=== PATIENT | male | born 1955 | race Caucasian/White ===

== ENCOUNTER 2016-06-21 18:25 | Inpatient (IN) | payer MEDICAID ==
[~2016-06-21] VITALS: Ht 180.3 cm; Wt 78.5 kg
[2016-06-21 18:33] VITALS: BP 148/82; PULSE 117; RESP 24; TEMP 99.4; O2SAT 86
[2016-06-21] MEDS ORDERED: methylPREDNISolone SOD SUCC/PF 62.5 MG/ML VIAL IVP ONE (19:00)
[2016-06-21] MEDS ORDERED: IPRATROPIUM BROM 0.5 MG/2.5 ML VIAL.NEB (ATROVENT) IH ONE ×2 (19:00→20:30)
[2016-06-21] MEDS ORDERED: ALBUTEROL SULFATE 0.083% 2.5 MG/3 ML VIAL.NEB IH ONE (19:00)
[2016-06-21 19:22] LABS: MEAN CORPUSCULAR HEMOGLOBIN 30 pg (27-31); MEAN CORPUSCULAR HGB CONC 33 % (32-36); MEAN CORPUSCULAR VOLUME 92 fL (79.0-98.0)
[2016-06-21 19:29] LABS: HEMOGLOBIN 14.2 g/dL (14.0-18.0); WHITE BLOOD COUNT (AUTO) 23.7 K/uL (4.8-10.8)
[2016-06-21 19:30] LABS: CALCIUM 9.3 mg/dL (8.4-11.0); CREATININE 1.12 mg/dL (0.55-1.30); HEMATOCRIT 43.3 % (36-54); PLATELET COUNT (AUTO) 388 K/uL (130-430); POTASSIUM 4.5 mmol/L (3.5-5.1); RED CELL DISTRIBUTION WIDTH 13.4 % (9.0-15.0)
[2016-06-21 19:32] LABS: PROTHROMBIN TIME 11.1 SECS (9.5-12.5)
[2016-06-21 19:35] LABS: TOTAL BILIRUBIN 0.5 mg/dL (0.0-1.0); TOTAL PROTEIN, SERUM 8.1 g/dL (6.4-8.3)
[2016-06-21 19:49] LABS: ATYPICAL LYMPHOCYTES % 0 % (0-0); BAND % (MANUAL) 2 % (0-6); BASOPHILS % (MANUAL) 0 % (0-2); EOSINOPHILS % (MANUAL) 0 % (0-7); LYMPHOCYTES % (MANUAL) 10 % (20-46); MONOCYTES % (MANUAL) 4 % (0-11)
[2016-06-21] MEDS ORDERED: LEVOFLOXACIN 500 MG/D5W 100 ML IV ONE (20:00)
[2016-06-21] MEDS ORDERED: ACETAMINOPHEN 325 MG TABLET PO ONE (20:15)
[2016-06-21 20:17] LABS: BLOOD GAS PH 7.418 (7.350-7.450)
[2016-06-21 20:18] LABS: ABG TOTAL HEMOGLOBIN 14.5 G/dL (12.0-18.0); BLOOD GAS BASE EXCESS 2.7 mmol/L (-3.0-3.0); BLOOD GAS COHb% 1.4 % (0.5-1.5); BLOOD GAS HHB 14.8 % (0.0-6.0); BLOOD O2Hb% 83.5 % (94.0-97.0)
[2016-06-21] MEDS ORDERED: LevALBUTEROL HCL 1.25 MG/0.5 ML *CONC.* VIAL.NEB (XOPENEX CONC.) INH ONE (20:30)
[2016-06-21] MEDS ORDERED: IPRA0.2S6 INH (20:37)
[2016-06-21] MEDS ORDERED: LISI-600 PO (20:37)
[2016-06-21] MEDS ORDERED: ALBU2.5V7 INH (20:37)
[2016-06-21] MEDS ORDERED: SIMV10TA6 PO (20:37)
[2016-06-21] MEDS ORDERED: CARV3.1246 PO (20:37)
[2016-06-21] MEDS ORDERED: ASPI-1063 PO (20:37)
[2016-06-21] MEDS ORDERED: MOME13HF INH (20:37)
[2016-06-21] MEDS ORDERED: IPRATROPIUM BROM 0.5 MG/2.5 ML VIAL.NEB (ATROVENT) INH PRN (21:00)
[2016-06-21] MEDS ORDERED: ALBUTEROL SULFATE 0.083% 2.5 MG/3 ML VIAL.NEB INH PRN (21:00)
[2016-06-21 21:15] VITALS: BP 139/66; PULSE 107
[2016-06-21 21:42] VITALS: BP 106/68; PULSE 103; RESP 21; TEMP 97.9; O2SAT 91
[2016-06-21] MEDS ORDERED: cefTRIAXone 1 GM IVPB PREMIX 50 ML IV ONE (21:46)
[2016-06-21] MEDS ORDERED: AZITHROMYCIN 500 MG/VIAL (ZITHROMAX) IV ONE (21:47)
[2016-06-21] MEDS: CARVEDILOL 3.125 MG TABLET (COREG) PO SCH (21:50)
[2016-06-21] MEDS: SIMVASTATIN 10 MG TABLET PO SCH (21:50)
[2016-06-21] MEDS: cefTRIAXone 1 GM IVPB PREMIX 50 ML IV SCH (21:51)
[2016-06-21] MEDS: AZITHROMYCIN 500 MG in NS 250 ML IV SCH (22:23)
[2016-06-21] MEDS: IPRATROPIUM BROM 0.5 MG/2.5 ML VIAL.NEB (ATROVENT) INH SCH (23:06)
[2016-06-21] MEDS: ALBUTEROL SULFATE 0.083% 2.5 MG/3 ML VIAL.NEB INH SCH (23:06)
[2016-06-22] VITALS (7 sets, daily range): BP systolic 94–123; BP diastolic 53–64; PULSE 72–102; RESP 17–19; TEMP 96.8–99.8; O2SAT 92–99
[2016-06-22] MEDS: ALBUTEROL SULFATE 0.083% 2.5 MG/3 ML VIAL.NEB INH SCH ×5 (03:00→20:17)
[2016-06-22] MEDS: IPRATROPIUM BROM 0.5 MG/2.5 ML VIAL.NEB (ATROVENT) INH SCH ×5 (03:00→20:17)
[2016-06-22] MEDS: methylPREDNISolone SOD SUCC/PF 62.5 MG/ML VIAL IVP SCH ×3 (05:35→22:15)
[2016-06-22] MEDS: CARVEDILOL 3.125 MG TABLET (COREG) PO SCH ×2 (09:00→20:39)
[2016-06-22] MEDS: LISINOPRIL 20 MG TABLET PO SCH (09:00)
[2016-06-22] MEDS: ASPIRIN 81 MG TABLET(ECOTRIN) PO SCH (10:51)
[2016-06-22] MEDS: SIMVASTATIN 10 MG TABLET PO SCH (20:39)
[2016-06-22] MEDS: cefTRIAXone 1 GM IVPB PREMIX 50 ML IV SCH (20:39)
[2016-06-22] MEDS: AZITHROMYCIN 500 MG in NS 250 ML IV SCH (22:16)
[2016-06-23 01:03] VITALS: BP 114/66; PULSE 99; RESP 18; TEMP 98.8; O2SAT 94
[2016-06-23] MEDS: ALBUTEROL SULFATE 0.083% 2.5 MG/3 ML VIAL.NEB INH SCH ×6 (02:34→23:06)
[2016-06-23] MEDS: IPRATROPIUM BROM 0.5 MG/2.5 ML VIAL.NEB (ATROVENT) INH SCH ×6 (02:34→23:06)
[2016-06-23 04:09] VITALS: BP 102/59; PULSE 84; RESP 18; TEMP 98.7; O2SAT 98
[2016-06-23] MEDS: methylPREDNISolone SOD SUCC/PF 62.5 MG/ML VIAL IVP SCH ×2 (06:21→14:19)
[2016-06-23 07:35] LABS: HEMATOCRIT 34.3 % (36-54); HEMOGLOBIN 11.8 g/dL (14.0-18.0); MEAN CORPUSCULAR HEMOGLOBIN 31 pg (27-31); MEAN CORPUSCULAR HGB CONC 34 % (32-36); MEAN CORPUSCULAR VOLUME 92 fL (79.0-98.0); PLATELET COUNT (AUTO) 351 K/uL (130-430); RED BLOOD CELL COUNT(AUTO) 3.75 MIL/uL (4.2-6.2); RED CELL DISTRIBUTION WIDTH 13.3 % (9.0-15.0)
[2016-06-23 07:50] LABS: WHITE BLOOD COUNT (AUTO) 35.1 K/uL (4.8-10.8)
[2016-06-23 07:52] LABS: CALCIUM 8.6 mg/dL (8.4-11.0); CREATININE 1.11 mg/dL (0.55-1.30); POTASSIUM 5.1 mmol/L (3.5-5.1)
[2016-06-23 08:41] LABS: BAND % (MANUAL) 5 % (0-6)
[2016-06-23 08:42] LABS: BASOPHILS % (MANUAL) 0 % (0-2); EOSINOPHILS % (MANUAL) 0 % (0-7); LYMPHOCYTES % (MANUAL) 3 % (20-46); MONOCYTES % (MANUAL) 3 % (0-11)
[2016-06-23] MEDS: ASPIRIN 81 MG TABLET(ECOTRIN) PO SCH (09:23)
[2016-06-23] MEDS: LISINOPRIL 20 MG TABLET PO SCH (09:24)
[2016-06-23] MEDS: CARVEDILOL 3.125 MG TABLET (COREG) PO SCH ×2 (09:24→21:52)
[2016-06-23 12:00] VITALS: BP 115/62; PULSE 77; RESP 16; TEMP 98.2; O2SAT 95
[2016-06-23 15:43] VITALS: Ht 180.3 cm; Wt 78.5 kg
[2016-06-23 16:00] VITALS: BP 125/75; PULSE 76; RESP 18; TEMP 98; O2SAT 100
[2016-06-23 20:00] VITALS: BP 106/67; PULSE 76; RESP 14; TEMP 99.1; O2SAT 95
[2016-06-23] MEDS ORDERED: DOCUSATE SODIUM 100 MG CAPSULE PO PRN (21:30)
[2016-06-23] MEDS: SIMVASTATIN 10 MG TABLET PO SCH (21:52)
[2016-06-23] MEDS: cefTRIAXone 1 GM IVPB PREMIX 50 ML IV SCH (21:54)
[2016-06-23] MEDS: AZITHROMYCIN 500 MG in NS 250 ML IV SCH (23:00)
[2016-06-23] MEDS: MAG-AL HYDROX/SIMETH 30 ML UDC PO PRN (23:04)
[2016-06-24] VITALS: BP 133/50; PULSE 60; RESP 16; TEMP 98; O2SAT 95
[2016-06-24] MEDS: ALBUTEROL SULFATE 0.083% 2.5 MG/3 ML VIAL.NEB INH SCH ×6 (03:17→23:21)
[2016-06-24] MEDS: IPRATROPIUM BROM 0.5 MG/2.5 ML VIAL.NEB (ATROVENT) INH SCH ×6 (03:18→23:21)
[2016-06-24 04:00] VITALS: BP 102/57; PULSE 85; RESP 18; TEMP 97.7; O2SAT 95
[2016-06-24 07:52] LABS: BASOPHILS # (AUTO) 0.1 K/uL (0.0-0.2); BASOPHILS % (AUTO) 0.4 % (0.0-2.0); HEMATOCRIT 38.1 % (36-54); HEMOGLOBIN 12.6 g/dL (14.0-18.0); LYMPHOCYTES # (AUTO) 0.8 K/uL (1.0-5.5); LYMPHOCYTES % (AUTO) 2.9 % (20.5-51.5); MEAN CORPUSCULAR HEMOGLOBIN 31 pg (27-31); MEAN CORPUSCULAR HGB CONC 33 % (32-36); MEAN CORPUSCULAR VOLUME 93 fL (79.0-98.0); MONOCYTES # (AUTO) 0.8 K/uL (0.0-1.0); MONOCYTES % (AUTO) 2.9 % (1.7-9.3); NEUTROPHILS # (AUTO) 27.1 K/uL (1.8-7.7); PLATELET COUNT (AUTO) 407 K/uL (130-430); RED CELL DISTRIBUTION WIDTH 13.4 % (9.0-15.0)
[2016-06-24 08:00] VITALS: BP 129/66; PULSE 89; RESP 14; TEMP 98.3; O2SAT 99
[2016-06-24] MEDS: methylPREDNISolone SOD SUCC/PF 62.5 MG/ML VIAL IVP SCH ×2 (08:29→22:02)
[2016-06-24] MEDS: ASPIRIN 81 MG TABLET(ECOTRIN) PO SCH (08:29)
[2016-06-24] MEDS: CARVEDILOL 3.125 MG TABLET (COREG) PO SCH ×2 (08:30→21:59)
[2016-06-24] MEDS: LISINOPRIL 20 MG TABLET PO SCH (08:31)
[2016-06-24 08:48] LABS: WHITE BLOOD COUNT (AUTO) 28.8 K/uL (4.8-10.8)
[2016-06-24 10:29] LABS: NEUTROPHILS % (AUTO) 93.8 % (40.0-70.0)
[2016-06-24 12:00] VITALS: BP_SYST 118; BP_SYST 122; BP_DIAS 74; PULSE 122; PULSE 70; RESP 16; RESP 18; TEMP 97; TEMP 97.8; O2SAT 93; O2SAT 97
[2016-06-24 16:00] VITALS: BP 129/74; PULSE 84; RESP 18; TEMP 98.4; O2SAT 99
[2016-06-24] MEDS: cefTRIAXone 1 GM IVPB PREMIX 50 ML IV SCH (21:00)
[2016-06-24] MEDS: SIMVASTATIN 10 MG TABLET PO SCH (21:59)
[2016-06-24] MEDS: AZITHROMYCIN 500 MG in NS 250 ML IV SCH (22:09)
[2016-06-25] VITALS (7 sets, daily range): BP systolic 126–157; BP diastolic 71–85; PULSE 64–107; RESP 16–22; TEMP 98.4–99; O2SAT 93–98
[2016-06-25] MEDS: IPRATROPIUM BROM 0.5 MG/2.5 ML VIAL.NEB (ATROVENT) INH SCH ×5 (03:58→20:15)
[2016-06-25] MEDS: ALBUTEROL SULFATE 0.083% 2.5 MG/3 ML VIAL.NEB INH SCH ×5 (03:58→20:15)
[2016-06-25 09:09] LABS: BASOPHILS # (AUTO) 0.2 K/uL (0.0-0.2); BASOPHILS % (AUTO) 1.2 % (0.0-2.0); HEMATOCRIT 34.8 % (36-54); HEMOGLOBIN 11.8 g/dL (14.0-18.0); LYMPHOCYTES # (AUTO) 0.9 K/uL (1.0-5.5); LYMPHOCYTES % (AUTO) 6.3 % (20.5-51.5); MEAN CORPUSCULAR HEMOGLOBIN 31 pg (27-31); MEAN CORPUSCULAR HGB CONC 34 % (32-36); MEAN CORPUSCULAR VOLUME 93 fL (79.0-98.0); MONOCYTES # (AUTO) 0.5 K/uL (0.0-1.0); MONOCYTES % (AUTO) 3.3 % (1.7-9.3); PLATELET COUNT (AUTO) 366 K/uL (130-430); RED BLOOD CELL COUNT(AUTO) 3.75 MIL/uL (4.2-6.2); RED CELL DISTRIBUTION WIDTH 13.2 % (9.0-15.0); WHITE BLOOD COUNT (AUTO) 14.6 K/uL (4.8-10.8)
[2016-06-25] MEDS: methylPREDNISolone SOD SUCC/PF 62.5 MG/ML VIAL IVP SCH ×2 (10:05→21:04)
[2016-06-25] MEDS: LISINOPRIL 20 MG TABLET PO SCH (10:06)
[2016-06-25] MEDS: ASPIRIN 81 MG TABLET(ECOTRIN) PO SCH (10:06)
[2016-06-25] MEDS: CARVEDILOL 3.125 MG TABLET (COREG) PO SCH ×2 (10:07→21:33)
[2016-06-25 12:13] LABS: NEUTROPHILS % (AUTO) 89.2 % (40.0-70.0)
[2016-06-25] MEDS: cefTRIAXone 1 GM IVPB PREMIX 50 ML IV SCH (21:03)
[2016-06-25] MEDS: SIMVASTATIN 10 MG TABLET PO SCH (21:32)
[2016-06-25] MEDS: AZITHROMYCIN 500 MG in NS 250 ML IV SCH (22:12)
[2016-06-26] VITALS: BP 159/89; PULSE 80; RESP 20; TEMP 98.6; O2SAT 94
[2016-06-26] MEDS: MAG-AL HYDROX/SIMETH 30 ML UDC PO PRN ×2 (00:28→21:55)
[2016-06-26] MEDS: ALBUTEROL SULFATE 0.083% 2.5 MG/3 ML VIAL.NEB INH SCH ×6 (02:34→23:15)
[2016-06-26] MEDS: IPRATROPIUM BROM 0.5 MG/2.5 ML VIAL.NEB (ATROVENT) INH SCH ×6 (02:34→23:16)
[2016-06-26 04:00] VITALS: BP 116/56; PULSE 89; RESP 17; TEMP 98.1; O2SAT 96
[2016-06-26 06:59] LABS: BASOPHILS % (AUTO) 0.1 % (0.0-2.0); EOSINOPHILS % (AUTO) 0.1 % (0.0-4.0); HEMATOCRIT 34.8 % (36-54); HEMOGLOBIN 11.5 g/dL (14.0-18.0); LYMPHOCYTES # (AUTO) 0.6 K/uL (1.0-5.5); LYMPHOCYTES % (AUTO) 4.8 % (20.5-51.5); MEAN CORPUSCULAR HEMOGLOBIN 31 pg (27-31); MEAN CORPUSCULAR HGB CONC 33 % (32-36); MEAN CORPUSCULAR VOLUME 93 fL (79.0-98.0); MONOCYTES # (AUTO) 0.4 K/uL (0.0-1.0); MONOCYTES % (AUTO) 3.6 % (1.7-9.3); NEUTROPHILS # (AUTO) 11.4 K/uL (1.8-7.7); NEUTROPHILS % (AUTO) 91.4 % (40.0-70.0); PLATELET COUNT (AUTO) 347 K/uL (130-430); RED BLOOD CELL COUNT(AUTO) 3.73 MIL/uL (4.2-6.2); RED CELL DISTRIBUTION WIDTH 13.1 % (9.0-15.0); WHITE BLOOD COUNT (AUTO) 12.4 K/uL (4.8-10.8)
[2016-06-26 08:00] VITALS: BP 126/64; PULSE 82; RESP 20; TEMP 97.9; O2SAT 92
[2016-06-26] MEDS: methylPREDNISolone SOD SUCC/PF 62.5 MG/ML VIAL IVP SCH ×2 (08:38→22:16)
[2016-06-26] MEDS: LISINOPRIL 20 MG TABLET PO SCH (08:39)
[2016-06-26] MEDS: ASPIRIN 81 MG TABLET(ECOTRIN) PO SCH (08:39)
[2016-06-26] MEDS: CARVEDILOL 3.125 MG TABLET (COREG) PO SCH ×2 (08:40→21:55)
[2016-06-26 12:17] VITALS: BP 143/70; PULSE 89; RESP 16; TEMP 98; O2SAT 99
[2016-06-26 16:25] VITALS: BP 139/69; PULSE 82; RESP 18; TEMP 97.8; O2SAT 99
[2016-06-26 19:50] VITALS: BP 145/80; PULSE 104; RESP 22; TEMP 99; O2SAT 92
[2016-06-26] MEDS: SIMVASTATIN 10 MG TABLET PO SCH (21:55)
[2016-06-26] MEDS: cefTRIAXone 1 GM IVPB PREMIX 50 ML IV SCH (22:16)
[2016-06-27] VITALS: BP 112/59; PULSE 82; RESP 17; TEMP 98.6; O2SAT 97
[2016-06-27 04:22] VITALS: BP 118/71; PULSE 75; RESP 19; TEMP 98.6; O2SAT 95
[2016-06-27 07:55] VITALS: BP 138/80; PULSE 83; RESP 20; TEMP 98.1; O2SAT 92
[2016-06-27] MEDS: CARVEDILOL 3.125 MG TABLET (COREG) PO SCH (08:43)
[2016-06-27] MEDS: ASPIRIN 81 MG TABLET(ECOTRIN) PO SCH (08:43)
[2016-06-27] MEDS: LISINOPRIL 20 MG TABLET PO SCH (08:43)
[2016-06-27] MEDS: methylPREDNISolone SOD SUCC/PF 62.5 MG/ML VIAL IVP SCH (08:44)
[2016-06-27 11:32] VITALS: BP 140/73; PULSE 105; RESP 19; TEMP 98.8; O2SAT 97
[2016-06-27 11:52] VITALS: BP 133/68; PULSE 64; RESP 20; TEMP 98; O2SAT 94
[2016-06-27 15:32] VITALS: BP 132/73; PULSE 91; RESP 16; TEMP 98.7; O2SAT 95
== END 2016-06-27 18:20 | disposition home or self-care (01) | DRG 720 ==
LOC: SED 18:25 → STU 20:57 → SMU 06-23 04:52
PROVIDERS: ADMIT Internal Medicine Hospice and Palliative Medicine; ATTEND Internal Medicine Hospice and Palliative Medicine
DX: A41.9 Sepsis, unspecified organism (principal); J96.00 Acute respiratory failure, unspecified whether with hypoxia or hypercapnia; J18.9 Pneumonia, unspecified organism; Z99.81 Dependence on supplemental oxygen; J44.0 Chronic obstructive pulmonary disease with (acute) lower respiratory infection; E44.1 Mild protein-calorie malnutrition; J44.1 Chronic obstructive pulmonary disease with (acute) exacerbation; I10 Essential (primary) hypertension; D72.829 Elevated white blood cell count, unspecified; Z82.5 Family history of asthma and other chronic lower respiratory diseases; Z87.891 Personal history of nicotine dependence; Z79.82 Long term (current) use of aspirin; Z79.899 Other long term (current) drug therapy; Z68.24 Body mass index [BMI] 24.0-24.9, adult
CPT/HCPCS: 36415; 36600; 71010; 71250-TC; 80048; 80053; 82803-TC; 83605; 83735-TC; 83880; 84484; 85007; 85025; 85027; 85610-TC; 85730-TC; 87040-TC; 93005; 93306; 94640; 94760; 96365; 96375; 99285; J0456; J0696; J1956; J2930; J7040; J7050

== ENCOUNTER 2018-05-19 07:58 | Inpatient (IN) | payer MEDICAID ==
[~2018-05-19] VITALS: Ht 180.3 cm; Wt 73.0 kg
[~2018-05-19 07:58] MED LIST: ALBU2.5V7 INH; ASPI-1153 PO; CARV3.1246 PO; IPRA0.2S6 INH; LISI-600 PO; MOME13HF INH; SIMV10TA6 PO
[2018-05-19 08:09] VITALS: BP_SYST 103
[2018-05-19] MEDS ORDERED: NACL 0.9% 1,000 ML IV ONE ×2 (08:21→08:30)
[2018-05-19] MEDS ORDERED: IPRATROPIUM/ALBUTEROL SULFATE 3 ML AMPUL.NEB (DUONEB) INH ONE (08:30)
[2018-05-19 08:51] LABS: BASOPHILS # (AUTO) 0.1 K/uL (0.0-0.2); BASOPHILS % (AUTO) 0.3 % (0.0-2.0); EOSINOPHILS # (AUTO) 0.1 K/uL (0.0-0.4); EOSINOPHILS % (AUTO) 0.3 % (0.0-4.0); HEMATOCRIT 27.6 % (36-54); HEMOGLOBIN 9.2 g/dL (14.0-18.0); LYMPHOCYTES # (AUTO) 1.7 K/uL (1.0-5.5); LYMPHOCYTES % (AUTO) 9.4 % (20.5-51.5); MEAN CORPUSCULAR HEMOGLOBIN 31 pg (27-31); MEAN CORPUSCULAR HGB CONC 33 % (32-36); MEAN CORPUSCULAR VOLUME 93 fL (79.0-98.0); MONOCYTES # (AUTO) 1.5 K/uL (0.0-1.0); MONOCYTES % (AUTO) 8.7 % (1.7-9.3); NEUTROPHILS # (AUTO) 14.2 K/uL (1.8-7.7); NEUTROPHILS % (AUTO) 81.3 % (40.0-70.0); PLATELET COUNT (AUTO) 352 K/uL (130-430); RED BLOOD CELL COUNT(AUTO) 2.98 MIL/uL (4.2-6.2); RED CELL DISTRIBUTION WIDTH 13.1 % (9.0-15.0); WHITE BLOOD COUNT (AUTO) 17.6 K/uL (4.8-10.8)
[2018-05-19 09:15] LABS: ANION GAP 7 (5-15); CALCIUM 8.9 mg/dL (8.4-11.0); CHLORIDE 103 mmol/L (98-107); CREATININE 1.98 mg/dL (0.55-1.30); GLUCOSE 129 mg/dL (70-99); POTASSIUM 4.6 mmol/L (3.5-5.1); SODIUM SERUM 139 mmol/L (136-145); UREA NITROGEN, BLOOD 33 mg/dL (8-21)
[2018-05-19 09:18] LABS: GFR AFRICAN AMERICAN 44 mL/min (>90)
[2018-05-19 09:20] LABS: ALANINE AMINOTRANSFERASE 11 U/L (12-78); ALBUMIN 2.7 g/dL (3.4-4.8); ASPARTATE AMINOTRANSFERASE 14 U/L (10-37); TOTAL BILIRUBIN 0.2 mg/dL (0.0-1.0)
[2018-05-19 09:23] LABS: ALCOHOL, BLOOD < 3 mg/dL (<10); PROTHROMBIN TIME 10.5 SECS (9.5-12.5)
[2018-05-19 09:35] LABS: ACETAMINOPHEN < 1 ug/mL (1-30)
[2018-05-19] MEDS ORDERED: PIPERACILLIN/TAZO 3.375 GM in NS 50 ML IV ONE (09:45)
[2018-05-19] MEDS ORDERED: metroNIDAZOLE 500 mg/NS 100 ML IV ONE (10:00)
[2018-05-19] MEDS ORDERED: ASPIRIN 81 MG TAB.CHEW PO ONE (10:00)
[2018-05-19] MEDS ORDERED: PIPERACILLIN/TAZOBACTAM 3.375 GM/VIAL (ZOSYN) IV ONE (10:21)
[2018-05-19] MEDS ORDERED: ALBU2.5V7 INH (11:04)
[2018-05-19] MEDS ORDERED: LISI-209 PO (11:04)
[2018-05-19] MEDS ORDERED: TAMS-11 PO (11:04)
[2018-05-19] MEDS ORDERED: SPIRIVA INH (11:04)
[2018-05-19 11:27] VITALS: BP_SYST 138
[2018-05-19 12:01] VITALS: BP_SYST 138
[2018-05-19] MEDS: D5/0.45 NS 1,000 ML IV SCH ×2 (12:06→22:36)
[2018-05-19] MEDS ORDERED: ONDANSETRON HCL 4 MG/2 ML VIAL IVP PRN (15:15)
[2018-05-19] MEDS ORDERED: ACETAMINOPHEN 325 MG TABLET PO PRN (15:15)
[2018-05-19] MEDS ORDERED: LevALBUTEROL HCL 1.25 MG/0.5 ML *CONC.* VIAL.NEB (XOPENEX CONC.) INH PRN (15:15)
[2018-05-19] MEDS ORDERED: HYDROmorphone 1 MG INJ. 1 MG/ML AMPUL IVP PRN (15:15)
[2018-05-19 16:07] VITALS: BP_SYST 99
[2018-05-19 16:31] VITALS: BP_SYST 138
[2018-05-19] MEDS: PIPERACILLIN/TAZO 3.375/DEX-IS 50 ML IV SCH (17:00)
[2018-05-19] MEDS: IPRATROPIUM BROM INH (19:00)
[2018-05-19] MEDS: LevALBUTEROL HCL 1.25 MG/0.5 ML *CONC.* VIAL.NEB (XOPENEX CONC.) INH SCH (19:56)
[2018-05-19] MEDS: metroNIDAZOLE 500 mg/NS 100 ML IV SCH (22:35)
[2018-05-19] MEDS: CARVEDILOL 3.125 MG TABLET (COREG) PO SCH (22:35)
[2018-05-19] MEDS: PANTOPRAZOLE SODIUM 40 MG/VIAL (PROTONIX) IVP SCH (22:37)
[2018-05-20] MEDS: PIPERACILLIN/TAZO 3.375/DEX-IS 50 ML IV SCH ×5 (00:07→23:24)
[2018-05-20] MEDS: LevALBUTEROL HCL 1.25 MG/0.5 ML *CONC.* VIAL.NEB (XOPENEX CONC.) INH SCH ×4 (00:49→18:57)
[2018-05-20] MEDS: IPRATROPIUM BROM INH ×4 (00:49→18:57)
[2018-05-20 02:29] VITALS: BP_SYST 108
[2018-05-20] MEDS: metroNIDAZOLE 500 mg/NS 100 ML IV SCH ×3 (05:15→21:21)
[2018-05-20 07:05] LABS: CALCIUM 7.7 mg/dL (8.4-11.0); CREATININE 1.31 mg/dL (0.55-1.30); POTASSIUM 3.7 mmol/L (3.5-5.1)
[2018-05-20 07:11] LABS: PHOSPHORUS 2.2 mg/dL (2.7-4.5)
[2018-05-20 08:00] VITALS: BP_SYST 108
[2018-05-20 08:31] LABS: BASOPHILS % (AUTO) 0.3 % (0.0-2.0); EOSINOPHILS # (AUTO) 0.2 K/uL (0.0-0.4); EOSINOPHILS % (AUTO) 1.6 % (0.0-4.0); LYMPHOCYTES # (AUTO) 1.4 K/uL (1.0-5.5); LYMPHOCYTES % (AUTO) 11.3 % (20.5-51.5); MEAN CORPUSCULAR HEMOGLOBIN 31 pg (27-31); MEAN CORPUSCULAR HGB CONC 33 % (32-36); MEAN CORPUSCULAR VOLUME 93 fL (79.0-98.0); MONOCYTES # (AUTO) 0.8 K/uL (0.0-1.0); MONOCYTES % (AUTO) 6.5 % (1.7-9.3); NEUTROPHILS # (AUTO) 10.4 K/uL (1.8-7.7); NEUTROPHILS % (AUTO) 80.3 % (40.0-70.0); PLATELET COUNT (AUTO) 280 K/uL (130-430); RED BLOOD CELL COUNT(AUTO) 2.33 MIL/uL (4.2-6.2); RED CELL DISTRIBUTION WIDTH 12.8 % (9.0-15.0); WHITE BLOOD COUNT (AUTO) 12.8 K/uL (4.8-10.8)
[2018-05-20 08:44] LABS: HEMOGLOBIN 7.1 g/dL (14.0-18.0)
[2018-05-20] MEDS ORDERED: TIOTROPIUM BROMIDE 18 mcg/INHALATION (CAPSULE) INH SCH (09:00)
[2018-05-20] MEDS: D5/0.45 NS 1,000 ML IV SCH ×4 (09:10→23:35)
[2018-05-20] MEDS: PANTOPRAZOLE SODIUM 40 MG/VIAL (PROTONIX) IVP SCH ×2 (09:11→21:20)
[2018-05-20] MEDS: CARVEDILOL 3.125 MG TABLET (COREG) PO SCH ×2 (09:12→22:20)
[2018-05-20 11:19] VITALS: BP_SYST 97
[2018-05-20 15:28] VITALS: BP_SYST 103
[2018-05-20 20:00] VITALS: BP_SYST 99
[2018-05-21] VITALS (9 sets, daily range): BP systolic 90–129
[2018-05-21] MEDS: LevALBUTEROL HCL 1.25 MG/0.5 ML *CONC.* VIAL.NEB (XOPENEX CONC.) INH SCH ×4 (01:40→19:29)
[2018-05-21] MEDS: IPRATROPIUM BROM INH ×4 (01:40→19:29)
[2018-05-21] MEDS: metroNIDAZOLE 500 mg/NS 100 ML IV SCH ×3 (05:35→21:26)
[2018-05-21] MEDS: PIPERACILLIN/TAZO 3.375/DEX-IS 50 ML IV SCH ×3 (06:33→17:34)
[2018-05-21 06:58] LABS: BASOPHILS # (AUTO) 0.1 K/uL (0.0-0.2); CALCIUM 7.7 mg/dL (8.4-11.0); CREATININE 1.3 mg/dL (0.55-1.30); EOSINOPHILS # (AUTO) 0.3 K/uL (0.0-0.4); MEAN CORPUSCULAR HGB CONC 33 % (32-36); MONOCYTES # (AUTO) 0.8 K/uL (0.0-1.0); PHOSPHORUS 2.5 mg/dL (2.7-4.5); POTASSIUM 3.4 mmol/L (3.5-5.1)
[2018-05-21 07:01] LABS: BASOPHILS % (AUTO) 0.7 % (0.0-2.0); EOSINOPHILS % (AUTO) 3.3 % (0.0-4.0); HEMATOCRIT 25.6 % (36-54); HEMOGLOBIN 8.5 g/dL (14.0-18.0); LYMPHOCYTES # (AUTO) 1.3 K/uL (1.0-5.5); LYMPHOCYTES % (AUTO) 15.6 % (20.5-51.5); MEAN CORPUSCULAR HEMOGLOBIN 31 pg (27-31); MEAN CORPUSCULAR VOLUME 93 fL (79.0-98.0); NEUTROPHILS # (AUTO) 5.9 K/uL (1.8-7.7); NEUTROPHILS % (AUTO) 71.4 % (40.0-70.0); PLATELET COUNT (AUTO) 238 K/uL (130-430); RED BLOOD CELL COUNT(AUTO) 2.74 MIL/uL (4.2-6.2); RED CELL DISTRIBUTION WIDTH 12.8 % (9.0-15.0)
[2018-05-21 07:11] LABS: WHITE BLOOD COUNT (AUTO) 8.4 K/uL (4.8-10.8)
[2018-05-21] MEDS: CARVEDILOL 3.125 MG TABLET (COREG) PO SCH ×2 (08:14→20:03)
[2018-05-21] MEDS: PANTOPRAZOLE SODIUM 40 MG/VIAL (PROTONIX) IVP SCH (08:14)
[2018-05-21] MEDS: D5/0.45 NS 1,000 ML IV SCH (09:05)
[2018-05-21] MEDS ORDERED: POTASSIUM CHLORIDE 20 MEQ TAB.PRT.SR PO ONE (12:15)
[2018-05-21] MEDS ORDERED: NAPH,MB-DB/K PH,MBDB 250 MG TAB PO ONE (12:15)
[2018-05-21] MEDS ORDERED: TAMSULOSIN HCL 0.4 MG CAP PO ONE (12:15)
[2018-05-21] MEDS ORDERED: MAGNESIUM SULFATE 4 GM in D5W 250 ML IV ONE (12:15)
[2018-05-21 18:12] LABS: BASOPHILS % (AUTO) 0.5 % (0.0-2.0); EOSINOPHILS # (AUTO) 0.3 K/uL (0.0-0.4); EOSINOPHILS % (AUTO) 3.7 % (0.0-4.0); HEMATOCRIT 23.2 % (36-54); HEMOGLOBIN 7.6 g/dL (14.0-18.0); LYMPHOCYTES # (AUTO) 1.8 K/uL (1.0-5.5); LYMPHOCYTES % (AUTO) 22.2 % (20.5-51.5); MEAN CORPUSCULAR HEMOGLOBIN 31 pg (27-31); MEAN CORPUSCULAR HGB CONC 33 % (32-36); MEAN CORPUSCULAR VOLUME 94 fL (79.0-98.0); MONOCYTES # (AUTO) 0.7 K/uL (0.0-1.0); MONOCYTES % (AUTO) 9.4 % (1.7-9.3); NEUTROPHILS # (AUTO) 5.2 K/uL (1.8-7.7); NEUTROPHILS % (AUTO) 64.2 % (40.0-70.0); PLATELET COUNT (AUTO) 283 K/uL (130-430); RED BLOOD CELL COUNT(AUTO) 2.48 MIL/uL (4.2-6.2); RED CELL DISTRIBUTION WIDTH 12.8 % (9.0-15.0)
[2018-05-21] MEDS ORDERED: NS 500 ML IV ONE (18:30)
[2018-05-21] MEDS ORDERED: PANTOPRAZOLE SODIUM 40 MG/VIAL (PROTONIX) ONE ×2 (19:46→23:58)
[2018-05-21] MEDS: PANTOPRAZOLE SODIUM 40 MG in NS 50 ML IV SCH ×2 (20:01→23:53)
[2018-05-22] VITALS (25 sets, daily range): BP systolic 87–143
[2018-05-22] MEDS: PIPERACILLIN/TAZO 3.375/DEX-IS 50 ML IV SCH ×4 (00:09→18:29)
[2018-05-22] MEDS: LevALBUTEROL HCL 1.25 MG/0.5 ML *CONC.* VIAL.NEB (XOPENEX CONC.) INH SCH ×4 (00:52→19:40)
[2018-05-22] MEDS: IPRATROPIUM BROM INH ×4 (00:52→19:41)
[2018-05-22] MEDS: D5/0.45 NS 1,000 ML IV SCH ×3 (03:15→12:17)
[2018-05-22] MEDS ORDERED: PANTOPRAZOLE SODIUM 40 MG/VIAL (PROTONIX) ONE (03:32)
[2018-05-22] MEDS: PANTOPRAZOLE SODIUM 40 MG in NS 50 ML IV SCH ×4 (04:57→20:37)
[2018-05-22] MEDS: metroNIDAZOLE 500 mg/NS 100 ML IV SCH ×3 (05:41→21:32)
[2018-05-22 06:59] LABS: BASOPHILS % (AUTO) 0.3 % (0.0-2.0); EOSINOPHILS # (AUTO) 0.2 K/uL (0.0-0.4); EOSINOPHILS % (AUTO) 1.7 % (0.0-4.0); HEMATOCRIT 24.6 % (36-54); HEMOGLOBIN 8.1 g/dL (14.0-18.0); LYMPHOCYTES % (AUTO) 10.9 % (20.5-51.5); MEAN CORPUSCULAR HEMOGLOBIN 31 pg (27-31); MEAN CORPUSCULAR HGB CONC 33 % (32-36); MEAN CORPUSCULAR VOLUME 93 fL (79.0-98.0); MONOCYTES # (AUTO) 0.7 K/uL (0.0-1.0); MONOCYTES % (AUTO) 7.9 % (1.7-9.3); NEUTROPHILS % (AUTO) 79.2 % (40.0-70.0); PLATELET COUNT (AUTO) 250 K/uL (130-430); RED BLOOD CELL COUNT(AUTO) 2.65 MIL/uL (4.2-6.2); RED CELL DISTRIBUTION WIDTH 13.5 % (9.0-15.0); WHITE BLOOD COUNT (AUTO) 8.9 K/uL (4.8-10.8)
[2018-05-22] MEDS ORDERED: fentaNYL CITRATE/PF 100 MCG/2 ML AMP ONE (07:24)
[2018-05-22] MEDS ORDERED: SIMETHICONE 40 MG/0.6 ML ML ONE (07:24)
[2018-05-22] MEDS: MEPERIDINE HCL/PF 100 MG/ML AMP ONE ×2 (07:49→07:57)
[2018-05-22] MEDS: MIDAZOLAM HCL 5 MG/5 ML VIAL ONE ×4 (07:49→07:55)
[2018-05-22 08:26] LABS: TOTAL IRON BIND. CAPACITY 157 ug/dL (250-450)
[2018-05-22] MEDS: TAMSULOSIN HCL 0.4 MG CAP PO SCH ×2 (08:58→13:49)
[2018-05-22] MEDS: CARVEDILOL 3.125 MG TABLET (COREG) PO SCH ×3 (08:59→21:32)
[2018-05-22] MEDS: OCTREOTIDE ACETATE 1,250 MCG in NS 243.75 ML IV SCH (09:00)
[2018-05-22 09:19] LABS: CALCIUM 7.6 mg/dL (8.4-11.0); CREATININE 1.15 mg/dL (0.55-1.30); POTASSIUM 4.2 mmol/L (3.5-5.1)
[2018-05-22 20:15] LABS: HEMATOCRIT 22.6 % (36-54); HEMOGLOBIN 7.4 g/dL (14.0-18.0)
[2018-05-23] VITALS (22 sets, daily range): BP systolic 89–133
[2018-05-23] MEDS: PIPERACILLIN/TAZO 3.375/DEX-IS 50 ML IV SCH ×4 (00:04→18:07)
[2018-05-23] MEDS: LevALBUTEROL HCL 1.25 MG/0.5 ML *CONC.* VIAL.NEB (XOPENEX CONC.) INH SCH ×4 (00:08→19:29)
[2018-05-23] MEDS: IPRATROPIUM BROM INH ×4 (00:08→19:29)
[2018-05-23] MEDS: D5/0.45 NS 1,000 ML IV SCH ×3 (01:00→20:47)
[2018-05-23 04:29] LABS: BASOPHILS # (AUTO) 0.1 K/uL (0.0-0.2); BASOPHILS % (AUTO) 0.7 % (0.0-2.0); EOSINOPHILS # (AUTO) 0.3 K/uL (0.0-0.4); HEMOGLOBIN 8.7 g/dL (14.0-18.0); LYMPHOCYTES # (AUTO) 1.3 K/uL (1.0-5.5); LYMPHOCYTES % (AUTO) 16.1 % (20.5-51.5); MEAN CORPUSCULAR HEMOGLOBIN 31 pg (27-31); MEAN CORPUSCULAR HGB CONC 33 % (32-36); MEAN CORPUSCULAR VOLUME 93 fL (79.0-98.0); MONOCYTES # (AUTO) 0.6 K/uL (0.0-1.0); MONOCYTES % (AUTO) 7.4 % (1.7-9.3); NEUTROPHILS # (AUTO) 5.8 K/uL (1.8-7.7); NEUTROPHILS % (AUTO) 71.8 % (40.0-70.0); PLATELET COUNT (AUTO) 232 K/uL (130-430); RED BLOOD CELL COUNT(AUTO) 2.81 MIL/uL (4.2-6.2); RED CELL DISTRIBUTION WIDTH 13.3 % (9.0-15.0); WHITE BLOOD COUNT (AUTO) 8.1 K/uL (4.8-10.8)
[2018-05-23 04:42] LABS: PROTHROMBIN TIME 10.5 SECS (9.5-12.5)
[2018-05-23] MEDS: PANTOPRAZOLE SODIUM 40 MG in NS 50 ML IV SCH ×5 (04:44→22:12)
[2018-05-23 04:48] LABS: ALBUMIN 1.9 g/dL (3.4-4.8); CALCIUM 7.6 mg/dL (8.4-11.0); CREATININE 1.18 mg/dL (0.55-1.30); POTASSIUM 4.4 mmol/L (3.5-5.1); TOTAL BILIRUBIN 0.2 mg/dL (0.0-1.0)
[2018-05-23] MEDS: metroNIDAZOLE 500 mg/NS 100 ML IV SCH ×3 (05:35→22:07)
[2018-05-23] MEDS: TAMSULOSIN HCL 0.4 MG CAP PO SCH (08:17)
[2018-05-23] MEDS: CARVEDILOL 3.125 MG TABLET (COREG) PO SCH ×2 (08:17→22:04)
[2018-05-23] MEDS: OCTREOTIDE ACETATE 1,250 MCG in NS 243.75 ML IV SCH (10:09)
[2018-05-24] MEDS: PIPERACILLIN/TAZO 3.375/DEX-IS 50 ML IV SCH ×5 (00:23→23:33)
[2018-05-24] MEDS: IPRATROPIUM BROM INH ×4 (00:46→19:10)
[2018-05-24] MEDS: LevALBUTEROL HCL 1.25 MG/0.5 ML *CONC.* VIAL.NEB (XOPENEX CONC.) INH SCH ×4 (00:47→19:10)
[2018-05-24] MEDS: PANTOPRAZOLE SODIUM 40 MG in NS 50 ML IV SCH ×5 (01:50→22:04)
[2018-05-24] MEDS: D5/0.45 NS 1,000 ML IV SCH ×3 (05:55→17:47)
[2018-05-24] MEDS: metroNIDAZOLE 500 mg/NS 100 ML IV SCH ×3 (06:40→22:04)
[2018-05-24 08:08] VITALS: BP_SYST 122
[2018-05-24] MEDS: TAMSULOSIN HCL 0.4 MG CAP PO SCH (08:10)
[2018-05-24] MEDS: OCTREOTIDE ACETATE 1,250 MCG in NS 243.75 ML IV SCH (08:12)
[2018-05-24] MEDS: CARVEDILOL 3.125 MG TABLET (COREG) PO SCH ×2 (08:12→22:05)
[2018-05-24 12:56] VITALS: BP_SYST 151
[2018-05-24 16:52] VITALS: BP_SYST 121
[2018-05-24 20:22] VITALS: BP_SYST 119
[2018-05-25 00:32] VITALS: BP_SYST 98
[2018-05-25] MEDS: IPRATROPIUM BROM INH (00:45)
[2018-05-25] MEDS: LevALBUTEROL HCL 1.25 MG/0.5 ML *CONC.* VIAL.NEB (XOPENEX CONC.) INH SCH (00:45)
[2018-05-25 03:24] VITALS: BP_SYST 103
== END 2018-05-25 04:53 | disposition short-term general hospital (02) | DRG 720 ==
LOC: SED 07:58 → STU 10:53 → SIC 05-21 18:15 → STU 05-23 20:38
PROVIDERS: ADMIT Family Medicine; ATTEND Family Medicine
PROC: 30233N1 Transfusion of Nonautologous Red Blood Cells into Peripheral Vein, Percutaneous Approach (ICD-10-PCS; 2018-05-20)
PROC: 0DJ08ZZ Inspection of Upper Intestinal Tract, Via Natural or Artificial Opening Endoscopic (ICD-10-PCS; principal; 2018-05-22 07:30)
DX: A41.9 Sepsis, unspecified organism (principal); E43 Unspecified severe protein-calorie malnutrition; K57.33 Diverticulitis of large intestine without perforation or abscess with bleeding; K25.4 Chronic or unspecified gastric ulcer with hemorrhage; N17.9 Acute kidney failure, unspecified; E86.0 Dehydration; K29.71 Gastritis, unspecified, with bleeding; K26.4 Chronic or unspecified duodenal ulcer with hemorrhage; J44.1 Chronic obstructive pulmonary disease with (acute) exacerbation; R55 Syncope and collapse; D64.9 Anemia, unspecified; K44.9 Diaphragmatic hernia without obstruction or gangrene; E78.5 Hyperlipidemia, unspecified; I10 Essential (primary) hypertension; K21.0 Gastro-esophageal reflux disease with esophagitis; Z87.891 Personal history of nicotine dependence; Z79.899 Other long term (current) drug therapy; Z68.22 Body mass index [BMI] 22.0-22.9, adult
CPT/HCPCS: 36415; 43239; 70450-TC; 71045; 72125-TC; 80048; 80053; 82378; 82607; 82728; 82746; 82962; 83540-TC; 83550-TC; 83605; 83735-TC; 84100-TC; 84484; 85018-TC; 85025; 85379; 85610-TC; 85730-TC; 86886; 86900; 86901; 86920; 87040-TC; 87081; 93005; 94640; 94760; 96361; 96365; 96368; 99285; C9113; G0378; G0480; G0481; G0482; J1170; J2175; J2250; J2354; J2543; J3010; J3475; J3490; J7030; J7040; J7050; J7060; J7612; J7620; P9021

== ENCOUNTER 2019-10-30 12:39 | Emergency (ER) | payer SELFPAY ==
[~2019-10-30] VITALS: Ht 182.9 cm; Wt 77.1 kg
[~2019-10-30 12:39] MED LIST changes: -ASPI-1153 PO; +LISI-209 PO; -LISI-600 PO; +SPIRIVA INH; +TAMS-11 PO
[2019-10-30 13:02] VITALS: BP_SYST 165
[2019-10-30] MEDS: IPRATROPIUM BROM 0.5 MG/2.5 ML VIAL.NEB (ATROVENT) INH ONE (13:25)
[2019-10-30] MEDS: ALBUTEROL SULFATE 0.083% 2.5 MG/3 ML VIAL.NEB INH ONE (13:25)
[2019-10-30] MEDS ORDERED: DOCU-144 PO (13:27)
[2019-10-30] MEDS ORDERED: FERR-69 PO (13:27)
[2019-10-30] MEDS ORDERED: MOME13HF INH (13:27)
[2019-10-30] MEDS ORDERED: PRED-531 PO (13:27)
[2019-10-30] MEDS ORDERED: DOXY100C2 PO (13:27)
[2019-10-30] MEDS: NACL 0.9% 1,000 ML IV ONE (13:31)
[2019-10-30] MEDS: methylPREDNISolone SOD SUCC/PF 62.5 MG/ML VIAL IVP ONE (13:31)
[2019-10-30 13:40] LABS: BASOPHILS # (AUTO) 0.1 K/uL (0.0-0.2); BASOPHILS % (AUTO) 0.4 % (0.0-2.0); EOSINOPHILS # (AUTO) 0.1 K/uL (0.0-0.4); EOSINOPHILS % (AUTO) 0.6 % (0.0-4.0); HEMATOCRIT 39.3 % (36-54); LYMPHOCYTES # (AUTO) 0.9 K/uL (1.0-5.5); LYMPHOCYTES % (AUTO) 7.2 % (20.5-51.5); MEAN CORPUSCULAR HEMOGLOBIN 31 pg (27-31); MEAN CORPUSCULAR HGB CONC 33 % (32-36); MEAN CORPUSCULAR VOLUME 92 fL (79.0-98.0); MONOCYTES # (AUTO) 0.7 K/uL (0.0-1.0); MONOCYTES % (AUTO) 5.7 % (1.7-9.3); NEUTROPHILS # (AUTO) 11.1 K/uL (1.8-7.7); NEUTROPHILS % (AUTO) 86.1 % (40.0-70.0); PLATELET COUNT (AUTO) 291 K/uL (130-430); RED BLOOD CELL COUNT(AUTO) 4.27 MIL/uL (4.2-6.2); RED CELL DISTRIBUTION WIDTH 13.5 % (9.0-15.0); WHITE BLOOD COUNT (AUTO) 12.8 K/uL (4.8-10.8)
[2019-10-30 13:54] LABS: CALCIUM 8.6 mg/dL (8.4-11.0); CREATININE 1.04 mg/dL (0.55-1.30); POTASSIUM 5.1 mmol/L (3.5-5.1)
[2019-10-30 14:00] LABS: ALBUMIN 3.5 g/dL (3.4-4.8); TOTAL BILIRUBIN 0.5 mg/dL (0.0-1.0)
[2019-10-30 16:24] VITALS: BP_SYST 99
== END 2019-10-30 16:24 | disposition home or self-care (01) ==
LOC: SED 12:39
DX: J45.901 Unspecified asthma with (acute) exacerbation (principal); I10 Essential (primary) hypertension; Z87.891 Personal history of nicotine dependence; Z79.899 Other long term (current) drug therapy
CPT/HCPCS: 36415; 71045; 80053; 84484; 85025; 93005; 94640; 96374; 99285; J2930; J7030; J7613

== ENCOUNTER 2022-05-10 08:23 | Inpatient (IN) | payer MEDICAID ==
[~2022-05-10] VITALS: Ht 182.9 cm; Wt 70.3 kg
[~2022-05-10 08:23] MED LIST changes: -ALBU2.5V7 INH; +DOCU-144 PO; +DOXY100C5 PO; +FERR-69 PO; -MOME13HF INH; +MOME13HF11 INH; +PRED-531 PO; -SIMV10TA6 PO; +SIMV10TA97 PO
[2022-05-10 08:25] VITALS: BP_SYST 154
--- NOTE | 2022-05-10 08:30 | NUR ---
Placed in room 01 . Placed on telemetry monitor, blood pressure machine and pulse oximeter. To gown for exam. Side rails up. Report given to GAUTAM GANNON.
--- NOTE | 2022-05-10 08:40 | NUR ---
ER DR. ROSEN EXAMINING PT
--- NOTE | 2022-05-10 08:43 | NUR ---
RT AT THE BEDSIDE FOR BREATHING TX
[2022-05-10] MEDS ORDERED: ALBUTEROL SULFATE 0.083% 2.5 MG/3 ML VIAL.NEB INH ONE (08:45)
[2022-05-10] MEDS ORDERED: IPRATROPIUM BROM 0.5 MG/2.5 ML VIAL.NEB (ATROVENT) INH ONE (08:45)
[2022-05-10] MEDS ORDERED: prednisoLONE 15 MG/5 ML UDC PO ONE (08:45)
[2022-05-10] MEDS ORDERED: predniSONE 20 MG TABLET PO ONE (09:00)
[2022-05-10 09:09] LABS: BASOPHILS % (AUTO) 0.1 % (0.0-2.0); HEMATOCRIT 43.4 % (36-54); HEMOGLOBIN 14.3 g/dL (14.0-18.0); LYMPHOCYTES # (AUTO) 0.5 K/uL (1.0-5.5); LYMPHOCYTES % (AUTO) 10.4 % (20.5-51.5); MEAN CORPUSCULAR HEMOGLOBIN 31 pg (27-31); MEAN CORPUSCULAR HGB CONC 33 % (32-36); MEAN CORPUSCULAR VOLUME 92 fL (79.0-98.0); MONOCYTES % (AUTO) 18.4 % (1.7-9.3); NEUTROPHILS # (AUTO) 3.7 K/uL (1.8-7.7); NEUTROPHILS % (AUTO) 71.1 % (40.0-70.0); PLATELET COUNT (AUTO) 146 K/uL (130-430); RED CELL DISTRIBUTION WIDTH 14.1 % (9.0-15.0); WHITE BLOOD COUNT (AUTO) 5.3 K/uL (4.8-10.8)
[2022-05-10 09:23] LABS: CALCIUM 8.4 mg/dL (8.4-11.0); CREATININE 1.16 mg/dL (0.55-1.30)
[2022-05-10 09:28] LABS: ALBUMIN 2.8 g/dL (3.4-4.8); TOTAL BILIRUBIN 0.5 mg/dL (0.0-1.0)
--- NOTE | 2022-05-10 13:15 | NUR ---
Admit bed requested Patient will be admitted to care of Dr. CORBIN. Admitted to MED SURGE unit. Diagnosis COVID POSITIVE, COPD Inpatient (Yes or No) YES Observation (Yes or No) NO Orientation concerns or request close to nursing station (Yes or No) NO Covid Status POSITIVE On vent or bipap NO Isolation requirements YES Needs a sitter NO From Home (Yes or if No enter name of facility) HOME Requires Dialysis (Yes or No) NO Med Rec Completed (Yes of No) YES
[2022-05-10] MEDS ORDERED: ALBU2.5V7 INH (13:19)
[2022-05-10] MEDS ORDERED: FLUT1DIS IH (13:19)
--- NOTE | 2022-05-10 13:19 | NUR ---
MED REC COMPLETED
--- NOTE | 2022-05-10 19:40 | NUR ---
REPORT GIVEN TO PHIL FLOREZ. PT JACQUES, VSS
[2022-05-10] MEDS ORDERED: IPRATROPIUM/ALBUTEROL SULFATE 3 ML AMPUL.NEB (DUONEB) INH ONE (21:30)
[2022-05-10] MEDS ORDERED: BUDESONIDE 0.5 MG/2 ML AMPUL.NEB INH ONE (21:30)
[2022-05-10] MEDS: cefTRIAXone 1 GM in D5W 50 ML IV SCH (21:38)
[2022-05-10] MEDS ORDERED: cefTRIAXone 1 GM VIAL ONE (21:39)
--- NOTE | 2022-05-10 22:00 | NUR ---
Pt moved to room 5; isolation precautions observed.
--- NOTE | 2022-05-10 22:15 | NUR ---
Pt resting comfortably in bed, VSS. Denies any SOB.
[2022-05-10 22:52] VITALS: BP_SYST 116
[2022-05-10] MEDS: AZITHROMYCIN 500 MG in NS 250 ML IV SCH (23:04)
[2022-05-10] MEDS ORDERED: LORazepam 2 MG/ML VIAL IVP PRN (23:15)
[2022-05-10] MEDS ORDERED: ONDANSETRON HCL 4 MG/2 ML VIAL IVP PRN (23:15)
[2022-05-10] MEDS ORDERED: ACETAMINOPHEN 325 MG TABLET PO PRN (23:15)
[2022-05-10] MEDS ORDERED: HYDROcodone/ACETAMIN 10-325 MG TAB PO PRN (23:15)
[2022-05-10] MEDS ORDERED: NALOXONE HCL 0.4 MG/ML AMP (NARCAN) IVP PRN ×2 (23:15)
[2022-05-10] MEDS ORDERED: HYDROcodone/ACETAMIN 5-325 MG TAB (NORCO/ VICODIN) PO PRN (23:15)
[2022-05-11] MEDS: IPRATROPIUM/ALBUTEROL SULFATE 3 ML AMPUL.NEB (DUONEB) INH SCH ×2 (03:29→07:59)
[2022-05-11] MEDS: NORMAL SALINE 5 ML DISP.SYRIN IVF SCH ×6 (06:03→22:13)
--- NOTE | 2022-05-11 06:39 | NUR ---
Patient will be admitted to care of MD CORBIN. Admitted to MS unit. Will go to room 126B. Complete and up to date summary report printed. SBAR report given at bedside to GAUTAM Morrell with opportunity for questions.
[2022-05-11 07:30] VITALS: BP_SYST 153
--- NOTE | 2022-05-11 07:30 | NUR ---
PT ADMITTED TO MED SURG. PT AOX4 ABLE TO MAKE NEEDS KNOWN. PT IS AMBULATORY. RR EVEN AND UNLABORED ON 2L NC. SKIN INTACT. BOWEL SOUNDS ARE HYPOACTIVE. PT EDUCATED TO USE CALL LIGHT IF HE NEEDS ASSISTANCE. ALL NEEDS MEET AT THIS TIME.
[2022-05-11] MEDS: BUDESONIDE 0.5 MG/2 ML AMPUL.NEB INH SCH ×2 (07:59→19:55)
[2022-05-11 08:09] LABS: EOSINOPHILS % (AUTO) 0.1 % (0.0-4.0); HEMATOCRIT 41.2 % (36-54); HEMOGLOBIN 13.6 g/dL (14.0-18.0); LYMPHOCYTES # (AUTO) 0.6 K/uL (1.0-5.5); LYMPHOCYTES % (AUTO) 14.2 % (20.5-51.5); MEAN CORPUSCULAR HEMOGLOBIN 31 pg (27-31); MEAN CORPUSCULAR HGB CONC 33 % (32-36); MEAN CORPUSCULAR VOLUME 92 fL (79.0-98.0); MONOCYTES # (AUTO) 0.8 K/uL (0.0-1.0); MONOCYTES % (AUTO) 18.8 % (1.7-9.3); NEUTROPHILS # (AUTO) 2.9 K/uL (1.8-7.7); NEUTROPHILS % (AUTO) 66.9 % (40.0-70.0); PLATELET COUNT (AUTO) 150 K/uL (130-430); RED BLOOD CELL COUNT(AUTO) 4.46 MIL/uL (4.2-6.2); WHITE BLOOD COUNT (AUTO) 4.4 K/uL (4.8-10.8)
[2022-05-11 08:32] LABS: CALCIUM 8.4 mg/dL (8.4-11.0); CREATININE 0.89 mg/dL (0.55-1.30); PHOSPHORUS 3.3 mg/dL (2.7-4.5)
[2022-05-11] MEDS: methylPREDNISolone SOD SUCC/PF 62.5 MG/ML VIAL IVP SCH ×2 (09:54→20:52)
[2022-05-11] MEDS: ENOXAPARIN SODIUM 30 MG/0.3 ML SYRINGE SUBCUT SCH (09:55)
[2022-05-11] MEDS: TAMSULOSIN HCL 0.4 MG CAP PO SCH (09:55)
[2022-05-11] MEDS: CARVEDILOL 3.125 MG TABLET (COREG) PO SCH ×2 (09:55→20:52)
[2022-05-11 12:00] VITALS: BP_SYST 150
[2022-05-11 13:09] VITALS: BP_SYST 119
[2022-05-11 16:00] VITALS: BP_SYST 148
[2022-05-11] MEDS: ALBUTEROL MDI INHALATION 8 GM INH INH SCH ×3 (16:00→23:25)
[2022-05-11] MEDS: FLUTICASONE 100 mCg/SALMETEROL 50 mCg DISKUS W.DEV INH SCH ×2 (16:40→21:00)
[2022-05-11 20:00] VITALS: BP_SYST 124
[2022-05-11] MEDS: lisinopriL 5 MG TABLET PO SCH (20:53)
[2022-05-11] MEDS: SIMVASTATIN 10 MG TABLET PO SCH (20:53)
[2022-05-11] MEDS: cefTRIAXone 1 GM in D5W 50 ML IV SCH (20:54)
--- NOTE | 2022-05-11 21:00 | NUR ---
Patient on Covid isolation plan of care discussed with patient, medication indication , to turn side to side tolerates well no SOB.
[2022-05-11] MEDS: AZITHROMYCIN 500 MG in NS 250 ML IV SCH (22:13)
[2022-05-12] VITALS: BP_SYST 111
--- NOTE | 2022-05-12 02:00 | NUR ---
PATIENT RESTING: Patient resting quietly. No acute distress noted. needs attended.
[2022-05-12] MEDS: ALBUTEROL MDI INHALATION 8 GM INH INH SCH ×5 (02:34→21:11)
[2022-05-12] MEDS: NORMAL SALINE 5 ML DISP.SYRIN IVF SCH ×3 (05:21→14:00)
--- NOTE | 2022-05-12 06:30 | NUR ---
Encouraged to increase oral fluid intake for hydration ,drinking water provided , proning position or turn side to side verbalized understanding.
[2022-05-12 06:47] LABS: ALBUMIN 2.4 g/dL (3.4-4.8); C-REACTIVE PROTEIN QUANT 7.5 mg/dL (0-0.5); CALCIUM 8.4 mg/dL (8.4-11.0); CREATININE 0.81 mg/dL (0.55-1.30); TOTAL BILIRUBIN 0.2 mg/dL (0.0-1.0)
[2022-05-12] MEDS: BUDESONIDE 0.5 MG/2 ML AMPUL.NEB INH SCH ×2 (07:00→20:17)
[2022-05-12 07:06] LABS: BASOPHILS % (AUTO) 0.1 % (0.0-2.0); HEMATOCRIT 38.3 % (36-54); HEMOGLOBIN 12.7 g/dL (14.0-18.0); LYMPHOCYTES # (AUTO) 0.3 K/uL (1.0-5.5); LYMPHOCYTES % (AUTO) 9.4 % (20.5-51.5); MEAN CORPUSCULAR HEMOGLOBIN 31 pg (27-31); MEAN CORPUSCULAR HGB CONC 33 % (32-36); MEAN CORPUSCULAR VOLUME 92 fL (79.0-98.0); MONOCYTES # (AUTO) 0.2 K/uL (0.0-1.0); MONOCYTES % (AUTO) 5.8 % (1.7-9.3); NEUTROPHILS # (AUTO) 2.9 K/uL (1.8-7.7); NEUTROPHILS % (AUTO) 84.7 % (40.0-70.0); PLATELET COUNT (AUTO) 177 K/uL (130-430); RED BLOOD CELL COUNT(AUTO) 4.18 MIL/uL (4.2-6.2); RED CELL DISTRIBUTION WIDTH 14.1 % (9.0-15.0); WHITE BLOOD COUNT (AUTO) 3.5 K/uL (4.8-10.8)
[2022-05-12 08:00] VITALS: BP_SYST 134
[2022-05-12 08:16] LABS: ERYTHROCYTE SEDIMENTATION RATE 28 MM/HR (0-15)
[2022-05-12] MEDS: methylPREDNISolone SOD SUCC/PF 62.5 MG/ML VIAL IVP SCH ×2 (09:10→20:51)
[2022-05-12] MEDS: TAMSULOSIN HCL 0.4 MG CAP PO SCH (09:11)
[2022-05-12] MEDS: FLUTICASONE 100 mCg/SALMETEROL 50 mCg DISKUS W.DEV INH SCH (09:11)
[2022-05-12] MEDS: CARVEDILOL 3.125 MG TABLET (COREG) PO SCH ×2 (09:11→20:52)
[2022-05-12] MEDS: ENOXAPARIN SODIUM 30 MG/0.3 ML SYRINGE SUBCUT SCH (09:11)
[2022-05-12 12:53] VITALS: BP_SYST 123
[2022-05-12 15:50] VITALS: BP_SYST 136
[2022-05-12] MEDS: SIMVASTATIN 10 MG TABLET PO SCH (20:51)
[2022-05-12] MEDS: cefTRIAXone 1 GM in D5W 50 ML IV SCH (20:53)
[2022-05-12] MEDS: AZITHROMYCIN 500 MG in NS 250 ML IV SCH (20:53)
[2022-05-13] VITALS: BP_SYST 153
--- NOTE | 2022-05-13 02:58 | NUR ---
Report given to steward/stewardess night RN for continuity of care. Patient stable condition.
--- NOTE | 2022-05-13 03:00 | NUR ---
i have assumed the care of the pt.for the remainder of the shift.maxine;rn conveyed pt's report/data.pt.quiescent;somnolent. o2 via nasal cannulae in place administered rate:2l/min.o2-sat%=96%.per flacc pain mgx pt.absent facial grimaces/body posturing.iv access intact;patent iv lock.pt.capable to reposition self.call light/telephone w/in access of the pt.
[2022-05-13] MEDS: ALBUTEROL MDI INHALATION 8 GM INH INH SCH ×6 (03:06→23:00)
[2022-05-13 04:00] VITALS: BP_SYST 138
--- NOTE | 2022-05-13 04:00 | NUR ---
pt.assessed.pt.quiescent.o2-sat%=96%. per flacc pain mgx pt.absent facial grimaces/body posturing.pt.capable to reposition self.call light/telephone w/in access of the pt.
[2022-05-13] MEDS: NORMAL SALINE 5 ML DISP.SYRIN IVF SCH ×3 (05:31→22:57)
--- NOTE | 2022-05-13 06:20 | NUR ---
pt.assessed.pt.quiescent.02-sat%=96%.per flacc pain mgx pt.absent facial grimaces/body posturing.pt.capable to reposition self.call light/telephone w/in access of the pt.
[2022-05-13] MEDS: BUDESONIDE 0.5 MG/2 ML AMPUL.NEB INH SCH ×2 (07:00→20:00)
[2022-05-13 08:00] VITALS: BP_SYST 148
--- NOTE | 2022-05-13 08:00 | NUR ---
AWAKE AND ORIENTED. NO SHORTNESS OF BREATH ON 3 LITERS OF O2 VIA NASAL CANNULA. DENIES ANY PAIN. REPORTED SOME DISCOMFORT IN TH E STOMACH. PLAN OF CARE EXPLAINED TO PATIENT, VERBALIZED UNDERSTANDING. SAFETY CHECKS DONE. ISOLATION PRECAUTIONS OBSERVED.
[2022-05-13 08:27] LABS: C-REACTIVE PROTEIN QUANT 3.3 mg/dL (0-0.5); CALCIUM 8.3 mg/dL (8.4-11.0); CREATININE 0.85 mg/dL (0.55-1.30)
[2022-05-13] MEDS: CARVEDILOL 3.125 MG TABLET (COREG) PO SCH ×2 (08:31→22:56)
[2022-05-13] MEDS: methylPREDNISolone SOD SUCC/PF 62.5 MG/ML VIAL IVP SCH ×2 (08:31→22:55)
[2022-05-13] MEDS: TAMSULOSIN HCL 0.4 MG CAP PO SCH (08:31)
[2022-05-13] MEDS: ENOXAPARIN SODIUM 30 MG/0.3 ML SYRINGE SUBCUT SCH (08:32)
[2022-05-13 09:17] LABS: HEMATOCRIT 40.2 % (36-54); HEMOGLOBIN 13.3 g/dL (14.0-18.0); LYMPHOCYTES # (AUTO) 0.3 K/uL (1.0-5.5); LYMPHOCYTES % (AUTO) 4.4 % (20.5-51.5); MEAN CORPUSCULAR HEMOGLOBIN 30 pg (27-31); MEAN CORPUSCULAR HGB CONC 33 % (32-36); MEAN CORPUSCULAR VOLUME 92 fL (79.0-98.0); MONOCYTES # (AUTO) 0.3 K/uL (0.0-1.0); NEUTROPHILS # (AUTO) 7.1 K/uL (1.8-7.7); NEUTROPHILS % (AUTO) 91.6 % (40.0-70.0); PLATELET COUNT (AUTO) 196 K/uL (130-430); RED BLOOD CELL COUNT(AUTO) 4.39 MIL/uL (4.2-6.2); WHITE BLOOD COUNT (AUTO) 7.7 K/uL (4.8-10.8)
[2022-05-13 10:01] LABS: ERYTHROCYTE SEDIMENTATION RATE 16 MM/HR (0-15)
--- NOTE | 2022-05-13 12:00 | NUR ---
PATIENT REPORTS DECREASE IN APPETITE. DR. CORBIN IS MAKING ROUNDS. INFORMED HIM THAT PATIENT IS REQUESTING FOR TUMS.
[2022-05-13 13:55] VITALS: BP_SYST 151
--- NOTE | 2022-05-13 14:00 | NUR ---
TUMS ADMINISTERED REQUESTED. IV INTACT.
[2022-05-13] MEDS: CALCIUM CARBONATE 500 MG/ TAB.CHEW PO PRN (14:04)
--- NOTE | 2022-05-13 16:00 | NUR ---
97% on 2 lpm o2. 95% resting room air. SOB on activity, 87%.
[2022-05-13 17:51] VITALS: BP_SYST 158
[2022-05-13 20:00] VITALS: BP_SYST 142
[2022-05-13] MEDS ORDERED: TEMAZEPAM 7.5 MG CAPSULE PO PRN (20:45)
[2022-05-13] MEDS: lisinopriL 5 MG TABLET PO SCH ×2 (21:00→22:56)
[2022-05-13] MEDS: FLUTICASONE 100 mCg/SALMETEROL 50 mCg DISKUS W.DEV INH SCH ×2 (21:00→23:15)
[2022-05-13] MEDS: SIMVASTATIN 10 MG TABLET PO SCH (22:39)
[2022-05-13] MEDS: AZITHROMYCIN 500 MG in NS 250 ML IV SCH (22:40)
[2022-05-13] MEDS: cefTRIAXone 1 GM in D5W 50 ML IV SCH (22:40)
[2022-05-14] VITALS (7 sets, daily range): BP systolic 145–159
[2022-05-14] MEDS: ALBUTEROL MDI INHALATION 8 GM INH INH SCH ×5 (05:44→20:29)
[2022-05-14] MEDS: NORMAL SALINE 5 ML DISP.SYRIN IVF SCH ×2 (05:45→15:06)
[2022-05-14 06:57] LABS: BASOPHILS % (AUTO) 0.1 % (0.0-2.0); HEMATOCRIT 37.5 % (36-54); HEMOGLOBIN 12.7 g/dL (14.0-18.0); LYMPHOCYTES # (AUTO) 0.2 K/uL (1.0-5.5); LYMPHOCYTES % (AUTO) 3.2 % (20.5-51.5); MEAN CORPUSCULAR HEMOGLOBIN 31 pg (27-31); MEAN CORPUSCULAR HGB CONC 34 % (32-36); MEAN CORPUSCULAR VOLUME 91 fL (79.0-98.0); MONOCYTES # (AUTO) 0.3 K/uL (0.0-1.0); MONOCYTES % (AUTO) 3.6 % (1.7-9.3); NEUTROPHILS # (AUTO) 6.7 K/uL (1.8-7.7); NEUTROPHILS % (AUTO) 93.1 % (40.0-70.0); PLATELET COUNT (AUTO) 190 K/uL (130-430); RED BLOOD CELL COUNT(AUTO) 4.11 MIL/uL (4.2-6.2); RED CELL DISTRIBUTION WIDTH 13.9 % (9.0-15.0); WHITE BLOOD COUNT (AUTO) 7.2 K/uL (4.8-10.8)
[2022-05-14 07:59] LABS: ALBUMIN 2.4 g/dL (3.4-4.8); C-REACTIVE PROTEIN QUANT 1.6 mg/dL (0-0.5); CALCIUM 8.2 mg/dL (8.4-11.0); CREATININE 0.71 mg/dL (0.55-1.30); TOTAL BILIRUBIN 0.3 mg/dL (0.0-1.0)
[2022-05-14] MEDS: BUDESONIDE 0.5 MG/2 ML AMPUL.NEB INH SCH ×2 (08:02→20:29)
[2022-05-14] MEDS: CARVEDILOL 3.125 MG TABLET (COREG) PO SCH (08:59)
[2022-05-14] MEDS: TAMSULOSIN HCL 0.4 MG CAP PO SCH (08:59)
[2022-05-14] MEDS: methylPREDNISolone SOD SUCC/PF 62.5 MG/ML VIAL IVP SCH (09:00)
[2022-05-14] MEDS: FLUTICASONE 100 mCg/SALMETEROL 50 mCg DISKUS W.DEV INH SCH (09:00)
[2022-05-14] MEDS: CALCIUM CARBONATE 500 MG/ TAB.CHEW PO PRN (09:00)
[2022-05-14] MEDS: ENOXAPARIN SODIUM 30 MG/0.3 ML SYRINGE SUBCUT SCH (09:00)
[2022-05-14 10:34] LABS: ERYTHROCYTE SEDIMENTATION RATE 12 MM/HR (0-15)
[2022-05-14] MEDS ORDERED: PRED20TA PO (11:11)
[2022-05-14] MEDS ORDERED: PRED10TA PO (11:11)
[2022-05-14] MEDS ORDERED: LEVO750T64 PO (11:11)
--- NOTE | 2022-05-14 13:19 | NUR ---
[facility] delivwer O2 portable and concentrator to the patient's hospital room today [phone]
--- NOTE | 2022-05-14 13:41 | NUR ---
Patient is awake, up in chair, A&O X 4, no complaints voiced. No observable signs of distress noted. Patient is on room air with oxygen saturations ranging from 90%-92%. Patient denies any chest pain.
--- NOTE | 2022-05-14 16:49 | NUR ---
This technical document writer(primary RN) called DR Smith and informed him patient's oxygen has been delivered at bedside, and patient is insisting he wants to be discharged and doesn't need home health. Patient is independent and stated he drove himself to to the hospital. Dr Smith recommends to discharge patient home without home health.
--- NOTE | 2022-05-14 17:09 | NUR ---
Unable to find Home Health Agency that would be able to accept the patient's insurance-Dr Smith notified.
--- NOTE | 2022-05-14 19:35 | NUR ---
1830: Patient discharged off unit at this time, no observable signs of distress noted. Patient's oxygen concentrator, and portable oxygen tank delivered at bedside. This chief writer(primary RN) educated patient on proper use/operating oxygen equipment, and on oxygen precautions. Patient verbalizes understanding, and perform accurate return demonstration. Patient also educated on discharge instructions, including all follow up appointments, signs and symptoms to monitor, discharge medication instructions. Patient verbalizes understanding.
== END 2022-05-14 18:30 | disposition home or self-care (01) | DRG 137 ==
LOC: SED 08:23 → SMU 10:29
PROVIDERS: ADMIT Preventive Medicine Preventive Medicine/Occupational Environmental Medicine; ATTEND Preventive Medicine Preventive Medicine/Occupational Environmental Medicine
DX: U07.1 COVID-19 (principal); J96.01 Acute respiratory failure with hypoxia; J12.82 Pneumonia due to coronavirus disease 2019; E43 Unspecified severe protein-calorie malnutrition; J44.0 Chronic obstructive pulmonary disease with (acute) lower respiratory infection; J44.1 Chronic obstructive pulmonary disease with (acute) exacerbation; I10 Essential (primary) hypertension; D64.9 Anemia, unspecified; K59.00 Constipation, unspecified; N40.0 Benign prostatic hyperplasia without lower urinary tract symptoms; E78.5 Hyperlipidemia, unspecified; E88.09 Other disorders of plasma-protein metabolism, not elsewhere classified; E83.51 Hypocalcemia; Z68.21 Body mass index [BMI] 21.0-21.9, adult
CPT/HCPCS: 36415; 71045; 71250-TC; 76376; 80048; 80053; 83605; 83735; 83880; 84100; 85025; 85651-TC; 86140; 93005; 94640; 94664; 94760; 96365; 96367; 99285; J0456; J0696; J1650; J2930; J7050; J7060; J7512; J7613; J7626

== ENCOUNTER 2022-05-15 15:45 | Inpatient (IN) | payer MEDICAID ==
[~2022-05-15] VITALS: Ht 182.9 cm; Wt 69.4 kg
[~2022-05-15 15:45] MED LIST changes: +ALBU2.5V7 INH; -DOCU-144 PO; -DOXY100C5 PO; -FERR-69 PO; +FLUT1DIS IH; -IPRA0.2S6 INH; +LEVO750T64 PO; -MOME13HF11 INH; -PRED-531 PO; +PRED10TA PO; +PRED20TA PO
[2022-05-15] MEDS ORDERED: methylPREDNISolone SOD SUCC/PF 62.5 MG/ML VIAL IVP ONE (17:00)
[2022-05-15] MEDS ORDERED: ALBUTEROL SULFATE 0.083% 2.5 MG/3 ML VIAL.NEB INH ONE ×2 (17:00→19:51)
[2022-05-15] MEDS ORDERED: IPRATROPIUM/ALBUTEROL SULFATE 3 ML AMPUL.NEB (DUONEB) INH ONE (17:00)
[2022-05-15 17:02] LABS: HEMATOCRIT 44.2 % (36-54); HEMOGLOBIN 14.5 g/dL (14.0-18.0); MEAN CORPUSCULAR HEMOGLOBIN 30 pg (27-31); MEAN CORPUSCULAR HGB CONC 33 % (32-36); MEAN CORPUSCULAR VOLUME 90 fL (79.0-98.0); PLATELET COUNT (AUTO) 233 K/uL (130-430); RED BLOOD CELL COUNT(AUTO) 4.88 MIL/uL (4.2-6.2); RED CELL DISTRIBUTION WIDTH 13.4 % (9.0-15.0); WHITE BLOOD COUNT (AUTO) 8.1 K/uL (4.8-10.8)
[2022-05-15 17:09] LABS: CALCIUM 9.1 mg/dL (8.4-11.0); CREATININE 0.82 mg/dL (0.55-1.30)
[2022-05-15 17:15] LABS: ALBUMIN 3.2 g/dL (3.4-4.8); TOTAL BILIRUBIN 0.7 mg/dL (0.0-1.0)
[2022-05-15 17:16] LABS: BAND % (MANUAL) 1 % (0-6); BASOPHILS % (MANUAL) 0 % (0-2); EOSINOPHILS % (MANUAL) 0 % (0-7); LYMPHOCYTES % (MANUAL) 2 % (20-46); MONOCYTES % (MANUAL) 6 % (0-11)
[2022-05-15] MEDS ORDERED: ALBUTEROL SULFATE 0.083% 2.5 MG/3 ML VIAL.NEB INH PRN (19:45)
[2022-05-15] MEDS: NACL 0.9% 1,000 ML IV SCH (20:12)
[2022-05-15] MEDS ORDERED: SIMVASTATIN 10 MG TABLET PO SCH (21:00)
[2022-05-15] MEDS ORDERED: FLUTICASONE 100 mCg/SALMETEROL 50 mCg DISKUS W.DEV INH SCH (21:00)
[2022-05-15] MEDS ORDERED: CARVEDILOL 3.125 MG TABLET (COREG) PO SCH (21:00)
[2022-05-15] MEDS ORDERED: ACETAMINOPHEN 325 MG TABLET PO PRN (21:15)
[2022-05-15] MEDS ORDERED: ALBUTEROL MDI INHALATION 8 GM INH INH PRN (21:15)
[2022-05-15] MEDS: AZITHROMYCIN 500 MG in NS 250 ML IV SCH (21:42)
[2022-05-15] MEDS: CARVEDILOL 12.5 MG TABLET (COREG) PO SCH (21:42)
[2022-05-15] MEDS: cefTRIAXone 1 GM in D5W 50 ML IV SCH (21:43)
[2022-05-15] MEDS ORDERED: AZITHROMYCIN 500 MG/VIAL (ZITHROMAX) IV ONE (21:47)
[2022-05-15] MEDS ORDERED: cefTRIAXone 1 GM VIAL ONE (21:47)
[2022-05-15] MEDS ORDERED: cloNIDine HCL 0.1 MG TABLET PO PRN (22:00)
[2022-05-15] MEDS ORDERED: MAG-AL HYDROX/SIMETH 30 ML UDC ONE (22:34)
[2022-05-15] MEDS: MAG-AL HYDROX/SIMETH 30 ML UDC PO PRN (22:37)
[2022-05-15 22:51] VITALS: BP_SYST 181
[2022-05-15] MEDS: METHYLPREDNISOLONE SOD SUCC 40 MG/ML VIAL IVP SCH (23:40)
[2022-05-16 00:03] VITALS: BP_SYST 138
[2022-05-16] MEDS ORDERED: ALBUTEROL SULFATE 0.083% 2.5 MG/3 ML VIAL.NEB INH SCH (01:00)
[2022-05-16 03:00] VITALS: BP_SYST 138
[2022-05-16] MEDS: METHYLPREDNISOLONE SOD SUCC 40 MG/ML VIAL IVP SCH ×4 (05:49→23:02)
[2022-05-16] MEDS ORDERED: IPRATROPIUM BROM 0.5 MG/2.5 ML VIAL.NEB (ATROVENT) INH PRN (06:45)
[2022-05-16] MEDS: ALBUTEROL MDI INHALATION 8 GM INH INH SCH ×5 (06:49→21:00)
[2022-05-16] MEDS: BUDESONIDE 0.5 MG/2 ML AMPUL.NEB INH SCH ×2 (06:50→19:00)
[2022-05-16] MEDS ORDERED: IPRATROPIUM BROM 0.5 MG/2.5 ML VIAL.NEB (ATROVENT) INH SCH (07:00)
[2022-05-16 08:33] VITALS: BP_SYST 157
[2022-05-16 08:56] LABS: CALCIUM 8.4 mg/dL (8.4-11.0); CREATININE 0.75 mg/dL (0.55-1.30)
[2022-05-16 08:58] LABS: BASOPHILS % (AUTO) 0.1 % (0.0-2.0); HEMATOCRIT 39.1 % (36-54); HEMOGLOBIN 13.2 g/dL (14.0-18.0); LYMPHOCYTES # (AUTO) 0.2 K/uL (1.0-5.5); MEAN CORPUSCULAR HEMOGLOBIN 30 pg (27-31); MEAN CORPUSCULAR HGB CONC 34 % (32-36); MEAN CORPUSCULAR VOLUME 90 fL (79.0-98.0); MONOCYTES # (AUTO) 0.1 K/uL (0.0-1.0); MONOCYTES % (AUTO) 2.9 % (1.7-9.3); PLATELET COUNT (AUTO) 200 K/uL (130-430); RED BLOOD CELL COUNT(AUTO) 4.34 MIL/uL (4.2-6.2); RED CELL DISTRIBUTION WIDTH 13.8 % (9.0-15.0)
[2022-05-16] MEDS ORDERED: levoFLOXacin 250 MG TABLET PO SCH (09:00)
[2022-05-16] MEDS ORDERED: predniSONE 10 MG TABLET PO SCH (09:00)
[2022-05-16] MEDS ORDERED: TIOTROPIUM BROMIDE 18 mcg/INHALATION (CAPSULE) INH SCH ×2 (09:00)
[2022-05-16] MEDS ORDERED: FLUTICASONE 100 mCg/SALMETEROL 50 mCg DISKUS W.DEV INH SCH (09:00)
[2022-05-16] MEDS ORDERED: predniSONE 20 MG TABLET PO SCH ×2 (09:00)
[2022-05-16] MEDS ORDERED: TAMSULOSIN HCL 0.4 MG CAP PO SCH (09:00)
[2022-05-16] MEDS ORDERED: lisinopriL 5 MG TABLET PO SCH (09:00)
[2022-05-16 09:04] LABS: WHITE BLOOD COUNT (AUTO) 4.3 K/uL (4.8-10.8)
[2022-05-16] MEDS: TAMSULOSIN HCL 0.4 MG CAP PO SCH (10:06)
[2022-05-16] MEDS: ASCORBIC ACID 500 MG TABLET PO SCH ×2 (10:06→22:31)
[2022-05-16] MEDS: MAGNESIUM OXIDE 400 MG TABLET PO SCH ×2 (10:07→21:00)
[2022-05-16] MEDS: CARVEDILOL 12.5 MG TABLET (COREG) PO SCH ×2 (10:07→22:33)
[2022-05-16] MEDS: CHOLECALCIFEROL (VITAMIN D3) 5,000 UNIT TABLET PO SCH (10:07)
[2022-05-16] MEDS: lisinopriL 20 MG TABLET PO SCH (10:10)
[2022-05-16] MEDS: NACL 0.9% 1,000 ML IV SCH ×2 (12:26→22:35)
[2022-05-16 12:39] VITALS: BP_SYST 147
[2022-05-16 16:05] VITALS: BP_SYST 126
[2022-05-16] MEDS: guaiFENesin/DEXTROMETHORPHAN 1 EACH TAB.ER.12H PO SCH (21:00)
[2022-05-16] MEDS: cefTRIAXone 1 GM in D5W 50 ML IV SCH (22:31)
[2022-05-16] MEDS: AZITHROMYCIN 500 MG in NS 250 ML IV SCH (22:31)
[2022-05-16] MEDS: SIMVASTATIN 20 MG TABLET PO SCH (22:32)
[2022-05-16] MEDS: TEMAZEPAM 15 MG CAPSULE PO SCH (22:32)
[2022-05-16] MEDS: ENOXAPARIN SODIUM 40 MG/0.4 ML SYRINGE SUBCUT SCH (22:35)
[2022-05-17 00:55] VITALS: BP_SYST 141
[2022-05-17] MEDS: METHYLPREDNISOLONE SOD SUCC 40 MG/ML VIAL IVP SCH ×3 (05:32→18:09)
[2022-05-17] MEDS: BUDESONIDE 0.5 MG/2 ML AMPUL.NEB INH SCH (07:54)
[2022-05-17 08:30] VITALS: BP_SYST 132
[2022-05-17] MEDS: ALBUTEROL MDI INHALATION 8 GM INH INH SCH ×4 (08:50→21:09)
[2022-05-17] MEDS: CARVEDILOL 12.5 MG TABLET (COREG) PO SCH ×2 (09:25→20:58)
[2022-05-17] MEDS: ASCORBIC ACID 500 MG TABLET PO SCH ×2 (09:25→20:56)
[2022-05-17] MEDS: lisinopriL 20 MG TABLET PO SCH (09:25)
[2022-05-17] MEDS: CHOLECALCIFEROL (VITAMIN D3) 5,000 UNIT TABLET PO SCH (09:25)
[2022-05-17] MEDS: TAMSULOSIN HCL 0.4 MG CAP PO SCH (09:25)
[2022-05-17] MEDS: MAGNESIUM OXIDE 400 MG TABLET PO SCH ×2 (09:25→20:56)
[2022-05-17 11:32] LABS: C-REACTIVE PROTEIN QUANT < 0.2 mg/dL (0-0.5)
[2022-05-17] MEDS: NACL 0.9% 1,000 ML IV SCH (12:24)
[2022-05-17] MEDS: guaiFENesin/DEXTROMETHORPHAN 1 EACH TAB.ER.12H PO SCH ×2 (12:24→21:03)
[2022-05-17 12:25] VITALS: BP_SYST 140
[2022-05-17 17:00] VITALS: BP_SYST 150
[2022-05-17 20:00] VITALS: BP_SYST 134
[2022-05-17] MEDS: cefTRIAXone 1 GM in D5W 50 ML IV SCH (20:56)
[2022-05-17] MEDS: ENOXAPARIN SODIUM 40 MG/0.4 ML SYRINGE SUBCUT SCH (20:57)
[2022-05-17] MEDS: TEMAZEPAM 15 MG CAPSULE PO SCH (20:57)
[2022-05-17] MEDS: SIMVASTATIN 20 MG TABLET PO SCH (20:59)
[2022-05-17] MEDS: AZITHROMYCIN 500 MG in NS 250 ML IV SCH (21:05)
[2022-05-18] VITALS: BP_SYST 146
[2022-05-18] MEDS: NACL 0.9% 1,000 ML IV SCH ×2 (00:35→17:57)
[2022-05-18] MEDS: METHYLPREDNISOLONE SOD SUCC 40 MG/ML VIAL IVP SCH ×4 (02:25→17:39)
[2022-05-18] MEDS: BUDESONIDE 0.5 MG/2 ML AMPUL.NEB INH SCH (07:00)
[2022-05-18] MEDS: ALBUTEROL MDI INHALATION 8 GM INH INH SCH ×4 (08:30→21:00)
[2022-05-18 08:54] LABS: HEMATOCRIT 42.6 % (36-54); LYMPHOCYTES # (AUTO) 0.3 K/uL (1.0-5.5); LYMPHOCYTES % (AUTO) 2.7 % (20.5-51.5); MEAN CORPUSCULAR HEMOGLOBIN 30 pg (27-31); MEAN CORPUSCULAR HGB CONC 33 % (32-36); MEAN CORPUSCULAR VOLUME 93 fL (79.0-98.0); MONOCYTES # (AUTO) 0.2 K/uL (0.0-1.0); NEUTROPHILS # (AUTO) 9.8 K/uL (1.8-7.7); NEUTROPHILS % (AUTO) 95.3 % (40.0-70.0); PLATELET COUNT (AUTO) 194 K/uL (130-430); RED BLOOD CELL COUNT(AUTO) 4.61 MIL/uL (4.2-6.2); RED CELL DISTRIBUTION WIDTH 13.9 % (9.0-15.0); WHITE BLOOD COUNT (AUTO) 10.3 K/uL (4.8-10.8)
[2022-05-18] MEDS: TAMSULOSIN HCL 0.4 MG CAP PO SCH (08:57)
[2022-05-18] MEDS: CHOLECALCIFEROL (VITAMIN D3) 5,000 UNIT TABLET PO SCH (08:57)
[2022-05-18] MEDS: lisinopriL 20 MG TABLET PO SCH (08:58)
[2022-05-18] MEDS: CARVEDILOL 12.5 MG TABLET (COREG) PO SCH ×2 (08:59→20:35)
[2022-05-18] MEDS: ASCORBIC ACID 500 MG TABLET PO SCH ×2 (08:59→20:35)
[2022-05-18] MEDS: MAGNESIUM OXIDE 400 MG TABLET PO SCH ×2 (08:59→20:36)
[2022-05-18] MEDS: guaiFENesin/DEXTROMETHORPHAN 1 EACH TAB.ER.12H PO SCH ×2 (09:00→20:37)
[2022-05-18 09:01] LABS: ALBUMIN 2.4 g/dL (3.4-4.8); CREATININE 0.61 mg/dL (0.55-1.30); TOTAL BILIRUBIN 0.2 mg/dL (0.0-1.0)
[2022-05-18 11:42] VITALS: BP_SYST 149
[2022-05-18 16:36] VITALS: BP_SYST 132
[2022-05-18] MEDS: cefTRIAXone 1 GM in D5W 50 ML IV SCH (20:31)
[2022-05-18] MEDS: TEMAZEPAM 15 MG CAPSULE PO SCH (20:34)
[2022-05-18] MEDS: MAG-AL HYDROX/SIMETH 30 ML UDC PO PRN (20:34)
[2022-05-18] MEDS: SIMVASTATIN 20 MG TABLET PO SCH (20:36)
[2022-05-18] MEDS: ENOXAPARIN SODIUM 40 MG/0.4 ML SYRINGE SUBCUT SCH (20:36)
[2022-05-18] MEDS: AZITHROMYCIN 500 MG in NS 250 ML IV SCH (20:38)
[2022-05-19] VITALS: BP_SYST 130
[2022-05-19] MEDS: METHYLPREDNISOLONE SOD SUCC 40 MG/ML VIAL IVP SCH ×5 (03:39→23:23)
[2022-05-19] MEDS: NACL 0.9% 1,000 ML IV SCH ×2 (03:43→08:30)
[2022-05-19 04:00] VITALS: BP_SYST 133
[2022-05-19] MEDS: BUDESONIDE 0.5 MG/2 ML AMPUL.NEB INH SCH (07:00)
[2022-05-19 07:48] LABS: BASOPHILS % (AUTO) 0.2 % (0.0-2.0); HEMATOCRIT 40.3 % (36-54); HEMOGLOBIN 13.1 g/dL (14.0-18.0); LYMPHOCYTES # (AUTO) 0.3 K/uL (1.0-5.5); MEAN CORPUSCULAR HEMOGLOBIN 30 pg (27-31); MEAN CORPUSCULAR HGB CONC 33 % (32-36); MEAN CORPUSCULAR VOLUME 92 fL (79.0-98.0); MONOCYTES # (AUTO) 0.4 K/uL (0.0-1.0); MONOCYTES % (AUTO) 3.2 % (1.7-9.3); NEUTROPHILS # (AUTO) 12.1 K/uL (1.8-7.7); NEUTROPHILS % (AUTO) 94.6 % (40.0-70.0); PLATELET COUNT (AUTO) 182 K/uL (130-430); RED BLOOD CELL COUNT(AUTO) 4.38 MIL/uL (4.2-6.2); RED CELL DISTRIBUTION WIDTH 13.7 % (9.0-15.0); WHITE BLOOD COUNT (AUTO) 12.8 K/uL (4.8-10.8)
[2022-05-19 08:01] VITALS: BP_SYST 145
[2022-05-19 08:03] LABS: ALBUMIN 2.1 g/dL (3.4-4.8); CALCIUM 7.5 mg/dL (8.4-11.0); CREATININE 0.57 mg/dL (0.55-1.30); TOTAL BILIRUBIN 0.2 mg/dL (0.0-1.0)
[2022-05-19] MEDS: CHOLECALCIFEROL (VITAMIN D3) 5,000 UNIT TABLET PO SCH (08:31)
[2022-05-19] MEDS: TAMSULOSIN HCL 0.4 MG CAP PO SCH (08:32)
[2022-05-19] MEDS: ASCORBIC ACID 500 MG TABLET PO SCH ×2 (08:32→21:04)
[2022-05-19] MEDS: lisinopriL 20 MG TABLET PO SCH (08:32)
[2022-05-19] MEDS: CARVEDILOL 12.5 MG TABLET (COREG) PO SCH ×2 (08:32→21:08)
[2022-05-19] MEDS: MAGNESIUM OXIDE 400 MG TABLET PO SCH ×2 (08:32→21:03)
[2022-05-19] MEDS: ALBUTEROL MDI INHALATION 8 GM INH INH SCH ×4 (08:40→21:00)
[2022-05-19] MEDS: guaiFENesin/DEXTROMETHORPHAN 1 EACH TAB.ER.12H PO SCH ×2 (09:00→20:54)
[2022-05-19 12:00] VITALS: BP_SYST 142
[2022-05-19 16:00] VITALS: BP_SYST 144
[2022-05-19 20:00] VITALS: BP_SYST 144
[2022-05-19] MEDS: cefTRIAXone 1 GM in D5W 50 ML IV SCH (20:55)
[2022-05-19] MEDS: SIMVASTATIN 20 MG TABLET PO SCH (21:03)
[2022-05-19] MEDS: ENOXAPARIN SODIUM 40 MG/0.4 ML SYRINGE SUBCUT SCH (21:04)
[2022-05-19] MEDS: TEMAZEPAM 15 MG CAPSULE PO SCH (21:05)
[2022-05-19] MEDS: AZITHROMYCIN 500 MG in NS 250 ML IV SCH (21:09)
[2022-05-20] MEDS: METHYLPREDNISOLONE SOD SUCC 40 MG/ML VIAL IVP SCH ×4 (05:39→22:13)
[2022-05-20] MEDS: NACL 0.9% 1,000 ML IV SCH (05:41)
[2022-05-20] MEDS: BUDESONIDE 0.5 MG/2 ML AMPUL.NEB INH SCH ×2 (07:00→20:06)
[2022-05-20 07:07] LABS: BASOPHILS % (AUTO) 0.1 % (0.0-2.0); HEMATOCRIT 40.2 % (36-54); HEMOGLOBIN 13.2 g/dL (14.0-18.0); LYMPHOCYTES # (AUTO) 0.3 K/uL (1.0-5.5); LYMPHOCYTES % (AUTO) 2.2 % (20.5-51.5); MEAN CORPUSCULAR HEMOGLOBIN 30 pg (27-31); MEAN CORPUSCULAR HGB CONC 33 % (32-36); MEAN CORPUSCULAR VOLUME 92 fL (79.0-98.0); MONOCYTES # (AUTO) 0.3 K/uL (0.0-1.0); MONOCYTES % (AUTO) 2.8 % (1.7-9.3); NEUTROPHILS # (AUTO) 11.5 K/uL (1.8-7.7); NEUTROPHILS % (AUTO) 94.9 % (40.0-70.0); PLATELET COUNT (AUTO) 183 K/uL (130-430); RED BLOOD CELL COUNT(AUTO) 4.37 MIL/uL (4.2-6.2); RED CELL DISTRIBUTION WIDTH 13.8 % (9.0-15.0); WHITE BLOOD COUNT (AUTO) 12.1 K/uL (4.8-10.8)
[2022-05-20 07:40] LABS: ALANINE AMINOTRANSFERASE 12 U/L (12-78); ALBUMIN 2.2 g/dL (3.4-4.8); ASPARTATE AMINOTRANSFERASE 16 U/L (10-37); CALCIUM 7.5 mg/dL (8.4-11.0); CHLORIDE 103 mmol/L (98-107); CREATININE 0.52 mg/dL (0.55-1.30); GLUCOSE 140 mg/dL (70-99); TOTAL BILIRUBIN 0.3 mg/dL (0.0-1.0); UREA NITROGEN, BLOOD 25 mg/dL (8-21)
[2022-05-20 08:00] VITALS: BP_SYST 142
[2022-05-20 08:23] LABS: GFR AFRICAN AMERICAN 204 mL/min (>90)
[2022-05-20 08:24] LABS: ANION GAP < 3 (5-15)
[2022-05-20] MEDS: ASCORBIC ACID 500 MG TABLET PO SCH ×2 (09:32→22:06)
[2022-05-20] MEDS: lisinopriL 20 MG TABLET PO SCH (09:33)
[2022-05-20] MEDS: CHOLECALCIFEROL (VITAMIN D3) 5,000 UNIT TABLET PO SCH (09:34)
[2022-05-20] MEDS: TAMSULOSIN HCL 0.4 MG CAP PO SCH (09:34)
[2022-05-20] MEDS: CARVEDILOL 12.5 MG TABLET (COREG) PO SCH ×2 (09:34→22:08)
[2022-05-20] MEDS: MAGNESIUM OXIDE 400 MG TABLET PO SCH ×2 (09:34→22:11)
[2022-05-20] MEDS: guaiFENesin/DEXTROMETHORPHAN 1 EACH TAB.ER.12H PO SCH ×2 (11:02→22:11)
[2022-05-20] MEDS: ALBUTEROL MDI INHALATION 8 GM INH INH SCH ×3 (11:08→20:06)
[2022-05-20 12:00] VITALS: BP_SYST 143
[2022-05-20] MEDS: IPRATROPIUM/ALBUTEROL SULFATE 3 ML AMPUL.NEB (DUONEB) INH PRN (15:52)
[2022-05-20 16:40] VITALS: BP_SYST 141
[2022-05-20 20:00] VITALS: BP_SYST 115
[2022-05-20] MEDS: cefTRIAXone 1 GM in D5W 50 ML IV SCH (22:05)
[2022-05-20] MEDS: ENOXAPARIN SODIUM 40 MG/0.4 ML SYRINGE SUBCUT SCH (22:05)
[2022-05-20] MEDS: TEMAZEPAM 15 MG CAPSULE PO SCH (22:10)
[2022-05-20] MEDS: SIMVASTATIN 20 MG TABLET PO SCH (22:11)
[2022-05-21 03:36] VITALS: BP_SYST 102
[2022-05-21] MEDS: METHYLPREDNISOLONE SOD SUCC 40 MG/ML VIAL IVP SCH ×3 (05:43→17:12)
[2022-05-21] MEDS: NACL 0.9% 1,000 ML IV SCH ×2 (05:43→13:02)
[2022-05-21] MEDS: ALBUTEROL MDI INHALATION 8 GM INH INH SCH ×4 (07:06→20:34)
[2022-05-21] MEDS: BUDESONIDE 0.5 MG/2 ML AMPUL.NEB INH SCH ×2 (07:06→20:26)
[2022-05-21 08:00] VITALS: BP_SYST 138
[2022-05-21 09:42] LABS: BASOPHILS % (AUTO) 0.1 % (0.0-2.0); HEMATOCRIT 41.6 % (36-54); HEMOGLOBIN 13.4 g/dL (14.0-18.0); LYMPHOCYTES # (AUTO) 0.3 K/uL (1.0-5.5); MEAN CORPUSCULAR HEMOGLOBIN 30 pg (27-31); MEAN CORPUSCULAR HGB CONC 32 % (32-36); MEAN CORPUSCULAR VOLUME 92 fL (79.0-98.0); MONOCYTES # (AUTO) 0.2 K/uL (0.0-1.0); MONOCYTES % (AUTO) 1.9 % (1.7-9.3); NEUTROPHILS # (AUTO) 12.3 K/uL (1.8-7.7); PLATELET COUNT (AUTO) 175 K/uL (130-430); RED CELL DISTRIBUTION WIDTH 13.6 % (9.0-15.0); WHITE BLOOD COUNT (AUTO) 12.8 K/uL (4.8-10.8)
[2022-05-21 10:01] LABS: ALBUMIN 2.2 g/dL (3.4-4.8); CALCIUM 7.6 mg/dL (8.4-11.0); CREATININE 0.58 mg/dL (0.55-1.30); TOTAL BILIRUBIN 0.4 mg/dL (0.0-1.0)
[2022-05-21] MEDS: guaiFENesin/DEXTROMETHORPHAN 1 EACH TAB.ER.12H PO SCH ×2 (10:23→21:19)
[2022-05-21] MEDS: ASCORBIC ACID 500 MG TABLET PO SCH ×2 (10:23→21:18)
[2022-05-21] MEDS: TAMSULOSIN HCL 0.4 MG CAP PO SCH (10:24)
[2022-05-21] MEDS: lisinopriL 20 MG TABLET PO SCH (10:24)
[2022-05-21] MEDS: CARVEDILOL 12.5 MG TABLET (COREG) PO SCH ×2 (10:24→21:19)
[2022-05-21] MEDS: CHOLECALCIFEROL (VITAMIN D3) 5,000 UNIT TABLET PO SCH (10:25)
[2022-05-21] MEDS: MAGNESIUM OXIDE 400 MG TABLET PO SCH ×2 (10:25→21:18)
[2022-05-21 11:17] VITALS: BP_SYST 124
[2022-05-21] MEDS: IPRATROPIUM/ALBUTEROL SULFATE 3 ML AMPUL.NEB (DUONEB) INH PRN (15:22)
[2022-05-21 17:10] VITALS: BP_SYST 122
[2022-05-21 19:25] VITALS: BP_SYST 159
[2022-05-21] MEDS: cefTRIAXone 1 GM in D5W 50 ML IV SCH (21:18)
[2022-05-21] MEDS: SIMVASTATIN 20 MG TABLET PO SCH (21:18)
[2022-05-21] MEDS: TEMAZEPAM 15 MG CAPSULE PO SCH (21:18)
[2022-05-21] MEDS: ENOXAPARIN SODIUM 40 MG/0.4 ML SYRINGE SUBCUT SCH (21:19)
[2022-05-22] VITALS (9 sets, daily range): BP systolic 96–147
[2022-05-22] MEDS: METHYLPREDNISOLONE SOD SUCC 40 MG/ML VIAL IVP SCH ×5 (00:19→21:40)
[2022-05-22] MEDS: NACL 0.9% 1,000 ML IV SCH ×2 (00:21→12:25)
[2022-05-22] MEDS: ASCORBIC ACID 500 MG TABLET PO SCH ×2 (09:25→21:40)
[2022-05-22] MEDS: CARVEDILOL 12.5 MG TABLET (COREG) PO SCH ×2 (09:26→21:00)
[2022-05-22] MEDS: lisinopriL 20 MG TABLET PO SCH (09:26)
[2022-05-22] MEDS: MAGNESIUM OXIDE 400 MG TABLET PO SCH ×2 (09:27→21:40)
[2022-05-22] MEDS: TAMSULOSIN HCL 0.4 MG CAP PO SCH (09:27)
[2022-05-22] MEDS: BUDESONIDE 0.5 MG/2 ML AMPUL.NEB INH SCH ×2 (09:28→20:36)
[2022-05-22] MEDS: CHOLECALCIFEROL (VITAMIN D3) 5,000 UNIT TABLET PO SCH (09:28)
[2022-05-22] MEDS: ALBUTEROL MDI INHALATION 8 GM INH INH SCH ×4 (09:29→20:36)
[2022-05-22] MEDS: guaiFENesin/DEXTROMETHORPHAN 1 EACH TAB.ER.12H PO SCH ×2 (09:33→21:40)
[2022-05-22 09:35] LABS: BASOPHILS % (AUTO) 0.1 % (0.0-2.0); HEMATOCRIT 40.8 % (36-54); HEMOGLOBIN 13.2 g/dL (14.0-18.0); LYMPHOCYTES # (AUTO) 0.2 K/uL (1.0-5.5); LYMPHOCYTES % (AUTO) 1.5 % (20.5-51.5); MEAN CORPUSCULAR HEMOGLOBIN 30 pg (27-31); MEAN CORPUSCULAR HGB CONC 32 % (32-36); MEAN CORPUSCULAR VOLUME 92 fL (79.0-98.0); MONOCYTES # (AUTO) 0.5 K/uL (0.0-1.0); MONOCYTES % (AUTO) 2.9 % (1.7-9.3); NEUTROPHILS # (AUTO) 15.7 K/uL (1.8-7.7); NEUTROPHILS % (AUTO) 95.5 % (40.0-70.0); PLATELET COUNT (AUTO) 193 K/uL (130-430); RED BLOOD CELL COUNT(AUTO) 4.43 MIL/uL (4.2-6.2); WHITE BLOOD COUNT (AUTO) 16.4 K/uL (4.8-10.8)
[2022-05-22 09:55] LABS: ALBUMIN 2.2 g/dL (3.4-4.8); CALCIUM 7.3 mg/dL (8.4-11.0); CREATININE 0.6 mg/dL (0.55-1.30); TOTAL BILIRUBIN 0.5 mg/dL (0.0-1.0)
[2022-05-22 14:40] LABS: BASOPHILS # (AUTO) 0.1 K/uL (0.0-0.2); BASOPHILS % (AUTO) 0.3 % (0.0-2.0); HEMOGLOBIN 8.9 g/dL (14.0-18.0); LYMPHOCYTES # (AUTO) 0.3 K/uL (1.0-5.5); LYMPHOCYTES % (AUTO) 1.7 % (20.5-51.5); MEAN CORPUSCULAR HEMOGLOBIN 30 pg (27-31); MEAN CORPUSCULAR HGB CONC 32 % (32-36); MEAN CORPUSCULAR VOLUME 92 fL (79.0-98.0); MONOCYTES # (AUTO) 0.9 K/uL (0.0-1.0); MONOCYTES % (AUTO) 4.6 % (1.7-9.3); NEUTROPHILS # (AUTO) 19.2 K/uL (1.8-7.7); NEUTROPHILS % (AUTO) 93.4 % (40.0-70.0); PLATELET COUNT (AUTO) 183 K/uL (130-430); RED BLOOD CELL COUNT(AUTO) 3.03 MIL/uL (4.2-6.2); RED CELL DISTRIBUTION WIDTH 13.7 % (9.0-15.0); WHITE BLOOD COUNT (AUTO) 20.5 K/uL (4.8-10.8)
[2022-05-22 14:59] LABS: INR 1.3 (0.80-1.20); PROTHROMBIN TIME 12.7 SECS (9.5-12.5)
[2022-05-22] MEDS ORDERED: PANTOPRAZOLE SODIUM 40 MG/VIAL (PROTONIX) IVP ONE (15:15)
[2022-05-22 19:29] LABS: HEMATOCRIT 27.5 % (36-54); HEMOGLOBIN 8.8 g/dL (14.0-18.0); MEAN CORPUSCULAR HEMOGLOBIN 29 pg (27-31); MEAN CORPUSCULAR HGB CONC 32 % (32-36); MEAN CORPUSCULAR VOLUME 91 fL (79.0-98.0); PLATELET COUNT (AUTO) 186 K/uL (130-430); RED BLOOD CELL COUNT(AUTO) 3.01 MIL/uL (4.2-6.2); RED CELL DISTRIBUTION WIDTH 13.7 % (9.0-15.0); WHITE BLOOD COUNT (AUTO) 21.2 K/uL (4.8-10.8)
[2022-05-22 20:28] LABS: BAND % (MANUAL) 1 % (0-6); BASOPHILS % (MANUAL) 0 % (0-2); EOSINOPHILS % (MANUAL) 0 % (0-7); LYMPHOCYTES % (MANUAL) 1 % (20-46); MONOCYTES % (MANUAL) 3 % (0-11)
[2022-05-22] MEDS: SIMVASTATIN 20 MG TABLET PO SCH (21:40)
[2022-05-22] MEDS: TEMAZEPAM 15 MG CAPSULE PO SCH (21:41)
[2022-05-22] MEDS: cefTRIAXone 1 GM in D5W 50 ML IV SCH (21:43)
[2022-05-22] MEDS ORDERED: ONDANSETRON HCL 4 MG/2 ML VIAL IVP PRN (23:15)
[2022-05-23] MEDS: METHYLPREDNISOLONE SOD SUCC 40 MG/ML VIAL IVP SCH ×4 (05:08→23:25)
[2022-05-23] MEDS: NACL 0.9% 1,000 ML IV SCH ×3 (06:01→23:24)
[2022-05-23] MEDS: BUDESONIDE 0.5 MG/2 ML AMPUL.NEB INH SCH (07:00)
[2022-05-23] MEDS: ALBUTEROL MDI INHALATION 8 GM INH INH SCH ×3 (07:38→16:03)
[2022-05-23 08:01] VITALS: BP_SYST 118
[2022-05-23] MEDS: guaiFENesin/DEXTROMETHORPHAN 1 EACH TAB.ER.12H PO SCH ×3 (08:42→21:59)
[2022-05-23] MEDS: CHOLECALCIFEROL (VITAMIN D3) 5,000 UNIT TABLET PO SCH (08:42)
[2022-05-23] MEDS: TAMSULOSIN HCL 0.4 MG CAP PO SCH (08:43)
[2022-05-23] MEDS: MAGNESIUM OXIDE 400 MG TABLET PO SCH ×2 (08:43→21:59)
[2022-05-23] MEDS: ASCORBIC ACID 500 MG TABLET PO SCH ×2 (08:44→22:00)
[2022-05-23] MEDS: CARVEDILOL 12.5 MG TABLET (COREG) PO SCH ×2 (08:44→21:00)
[2022-05-23] MEDS: lisinopriL 20 MG TABLET PO SCH (09:00)
[2022-05-23] MEDS: PANTOPRAZOLE SODIUM 40 MG/VIAL (PROTONIX) IVP SCH ×2 (09:09→21:58)
[2022-05-23 10:22] LABS: BASOPHILS # (AUTO) 0.1 K/uL (0.0-0.2); BASOPHILS % (AUTO) 0.2 % (0.0-2.0); HEMATOCRIT 30.1 % (36-54); HEMOGLOBIN 9.8 g/dL (14.0-18.0); LYMPHOCYTES # (AUTO) 0.3 K/uL (1.0-5.5); LYMPHOCYTES % (AUTO) 1.3 % (20.5-51.5); MEAN CORPUSCULAR HEMOGLOBIN 29 pg (27-31); MEAN CORPUSCULAR HGB CONC 33 % (32-36); MEAN CORPUSCULAR VOLUME 90 fL (79.0-98.0); MONOCYTES # (AUTO) 0.9 K/uL (0.0-1.0); NEUTROPHILS # (AUTO) 20.4 K/uL (1.8-7.7); PLATELET COUNT (AUTO) 155 K/uL (130-430); RED BLOOD CELL COUNT(AUTO) 3.36 MIL/uL (4.2-6.2); RED CELL DISTRIBUTION WIDTH 14.7 % (9.0-15.0); WHITE BLOOD COUNT (AUTO) 21.6 K/uL (4.8-10.8)
[2022-05-23 10:25] LABS: NEUTROPHILS % (AUTO) 94.5 % (40.0-70.0)
[2022-05-23 10:53] LABS: ALBUMIN 1.8 g/dL (3.4-4.8); CALCIUM 7.3 mg/dL (8.4-11.0); CREATININE 0.69 mg/dL (0.55-1.30); TOTAL BILIRUBIN 0.8 mg/dL (0.0-1.0)
[2022-05-23 12:00] VITALS: BP_SYST 93
[2022-05-23] MEDS ORDERED: POLYETHYLENE GLYCOL 3350, 17 GM/ POWD.PACK PO ONE (14:00)
[2022-05-23 16:00] VITALS: BP_SYST 98
[2022-05-23] MEDS ORDERED: BISACODYL 5 MG TABLET.DR (DULCOLAX) PO ONE (17:00)
[2022-05-23 19:00] VITALS: BP_SYST 98
[2022-05-23 20:00] VITALS: BP_SYST 98
[2022-05-23] MEDS ORDERED: POLYETHYLENE GLYCOL 3350, 17 GM/ POWD.PACK PO SCH (21:00)
[2022-05-23] MEDS: cefTRIAXone 1 GM in D5W 50 ML IV SCH (21:58)
[2022-05-23] MEDS: TEMAZEPAM 15 MG CAPSULE PO SCH (21:59)
[2022-05-23] MEDS: SIMVASTATIN 20 MG TABLET PO SCH (22:00)
[2022-05-23] MEDS ORDERED: POLYETHYLENE GLYCOL 3350, 17 GM/ POWD.PACK ONE (23:37)
[2022-05-24] VITALS: BP_SYST 102
[2022-05-24] MEDS: METHYLPREDNISOLONE SOD SUCC 40 MG/ML VIAL IVP SCH ×4 (05:58→23:36)
[2022-05-24 06:39] LABS: BASOPHILS % (AUTO) 0.1 % (0.0-2.0); HEMATOCRIT 28.3 % (36-54); HEMOGLOBIN 9.2 g/dL (14.0-18.0); LYMPHOCYTES # (AUTO) 0.3 K/uL (1.0-5.5); LYMPHOCYTES % (AUTO) 1.7 % (20.5-51.5); MEAN CORPUSCULAR HEMOGLOBIN 29 pg (27-31); MEAN CORPUSCULAR HGB CONC 32 % (32-36); MEAN CORPUSCULAR VOLUME 90 fL (79.0-98.0); MONOCYTES # (AUTO) 0.4 K/uL (0.0-1.0); MONOCYTES % (AUTO) 2.1 % (1.7-9.3); NEUTROPHILS % (AUTO) 96.1 % (40.0-70.0); PLATELET COUNT (AUTO) 157 K/uL (130-430); RED BLOOD CELL COUNT(AUTO) 3.16 MIL/uL (4.2-6.2); RED CELL DISTRIBUTION WIDTH 14.9 % (9.0-15.0); WHITE BLOOD COUNT (AUTO) 18.7 K/uL (4.8-10.8)
[2022-05-24 06:52] LABS: PROTHROMBIN TIME 10.6 SECS (9.5-12.5)
[2022-05-24 07:04] LABS: ALBUMIN 1.9 g/dL (3.4-4.8); CALCIUM 7.2 mg/dL (8.4-11.0); CREATININE 0.75 mg/dL (0.55-1.30); TOTAL BILIRUBIN 0.3 mg/dL (0.0-1.0)
[2022-05-24 08:00] VITALS: BP_SYST 140
[2022-05-24] MEDS: CARVEDILOL 12.5 MG TABLET (COREG) PO SCH ×2 (09:00→22:46)
[2022-05-24] MEDS: CHOLECALCIFEROL (VITAMIN D3) 5,000 UNIT TABLET PO SCH (09:00)
[2022-05-24] MEDS: guaiFENesin/DEXTROMETHORPHAN 1 EACH TAB.ER.12H PO SCH ×2 (09:00→21:00)
[2022-05-24] MEDS: MAGNESIUM OXIDE 400 MG TABLET PO SCH ×2 (09:00→22:48)
[2022-05-24] MEDS: ASCORBIC ACID 500 MG TABLET PO SCH ×2 (09:00→22:48)
[2022-05-24] MEDS: TAMSULOSIN HCL 0.4 MG CAP PO SCH (09:00)
[2022-05-24] MEDS: lisinopriL 20 MG TABLET PO SCH (09:00)
[2022-05-24] MEDS: BUDESONIDE 0.5 MG/2 ML AMPUL.NEB INH SCH (11:08)
[2022-05-24] MEDS: ALBUTEROL MDI INHALATION 8 GM INH INH SCH ×3 (11:08→17:34)
[2022-05-24] MEDS: PANTOPRAZOLE SODIUM 40 MG/VIAL (PROTONIX) IVP SCH ×2 (11:10→22:46)
[2022-05-24] MEDS: NACL 0.9% 1,000 ML IV SCH ×2 (11:17→22:49)
[2022-05-24] MEDS ORDERED: MEPERIDINE HCL/PF 25 MG/ML DISP.SYRIN ONE (13:16)
[2022-05-24] MEDS ORDERED: MIDAZOLAM HCL 5 MG/5 ML VIAL ONE (13:17)
[2022-05-24 13:48] VITALS: BP_SYST 123
[2022-05-24 18:00] VITALS: BP_SYST 116
[2022-05-24 19:00] VITALS: BP_SYST 108
[2022-05-24 20:00] VITALS: BP_SYST 108
[2022-05-24] MEDS: TEMAZEPAM 15 MG CAPSULE PO SCH (22:46)
[2022-05-24] MEDS: SIMVASTATIN 20 MG TABLET PO SCH (22:47)
[2022-05-24] MEDS ORDERED: cefTRIAXone 1 GM IVPB PREMIX 50 ML IV ONE (23:19)
[2022-05-24] MEDS: cefTRIAXone 1 GM in D5W 50 ML IV SCH (23:24)
[2022-05-25] MEDS: NACL 0.9% 1,000 ML IV SCH ×2 (06:54→12:04)
[2022-05-25] MEDS: METHYLPREDNISOLONE SOD SUCC 40 MG/ML VIAL IVP SCH ×4 (06:55→23:28)
[2022-05-25 08:00] VITALS: BP_SYST 131
[2022-05-25] MEDS: guaiFENesin/DEXTROMETHORPHAN 1 EACH TAB.ER.12H PO SCH ×2 (09:00→20:27)
[2022-05-25] MEDS: PANTOPRAZOLE SODIUM 40 MG/VIAL (PROTONIX) IVP SCH ×2 (10:09→20:22)
[2022-05-25] MEDS: TAMSULOSIN HCL 0.4 MG CAP PO SCH (10:09)
[2022-05-25] MEDS: lisinopriL 20 MG TABLET PO SCH (10:10)
[2022-05-25] MEDS: MAGNESIUM OXIDE 400 MG TABLET PO SCH ×2 (10:11→20:22)
[2022-05-25] MEDS: CARVEDILOL 12.5 MG TABLET (COREG) PO SCH ×2 (10:11→20:23)
[2022-05-25] MEDS: ASCORBIC ACID 500 MG TABLET PO SCH ×2 (10:11→20:22)
[2022-05-25] MEDS: CHOLECALCIFEROL (VITAMIN D3) 5,000 UNIT TABLET PO SCH (10:12)
[2022-05-25 11:22] VITALS: BP_SYST 144
[2022-05-25] MEDS: ALBUTEROL MDI INHALATION 8 GM INH INH SCH ×4 (11:53→22:21)
[2022-05-25] MEDS: BUDESONIDE 0.5 MG/2 ML AMPUL.NEB INH SCH ×2 (11:53→19:00)
[2022-05-25 13:29] VITALS: BP_SYST 144
[2022-05-25 15:59] VITALS: BP_SYST 140
[2022-05-25 20:00] VITALS: BP_SYST 115
[2022-05-25] MEDS: cefTRIAXone 1 GM in D5W 50 ML IV SCH (20:22)
[2022-05-25] MEDS: SIMVASTATIN 20 MG TABLET PO SCH (20:23)
[2022-05-25] MEDS: TEMAZEPAM 15 MG CAPSULE PO SCH (20:26)
[2022-05-26 01:34] VITALS: BP_SYST 124
[2022-05-26] MEDS: NACL 0.9% 1,000 ML IV SCH ×2 (04:46→12:37)
[2022-05-26] MEDS: METHYLPREDNISOLONE SOD SUCC 40 MG/ML VIAL IVP SCH ×3 (05:55→17:44)
[2022-05-26 08:00] VITALS: BP_SYST 121
[2022-05-26] MEDS: TAMSULOSIN HCL 0.4 MG CAP PO SCH (08:54)
[2022-05-26] MEDS: PANTOPRAZOLE SODIUM 40 MG/VIAL (PROTONIX) IVP SCH ×2 (08:54→21:20)
[2022-05-26] MEDS: CARVEDILOL 12.5 MG TABLET (COREG) PO SCH ×2 (08:55→21:21)
[2022-05-26] MEDS: CHOLECALCIFEROL (VITAMIN D3) 5,000 UNIT TABLET PO SCH (08:56)
[2022-05-26] MEDS: guaiFENesin/DEXTROMETHORPHAN 1 EACH TAB.ER.12H PO SCH ×2 (08:56→21:21)
[2022-05-26] MEDS: lisinopriL 20 MG TABLET PO SCH (08:56)
[2022-05-26] MEDS: ASCORBIC ACID 500 MG TABLET PO SCH ×2 (08:57→21:22)
[2022-05-26] MEDS: MAGNESIUM OXIDE 400 MG TABLET PO SCH ×2 (08:57→21:21)
[2022-05-26] MEDS: ALBUTEROL MDI INHALATION 8 GM INH INH SCH ×3 (08:58→17:44)
[2022-05-26 11:12] VITALS: BP_SYST 111
[2022-05-26 16:17] VITALS: BP_SYST 116
[2022-05-26] MEDS: BUDESONIDE 0.5 MG/2 ML AMPUL.NEB INH SCH (19:00)
[2022-05-26 19:35] VITALS: BP_SYST 108
[2022-05-26] MEDS: cefTRIAXone 1 GM in D5W 50 ML IV SCH (21:20)
[2022-05-26] MEDS: SIMVASTATIN 20 MG TABLET PO SCH (21:21)
[2022-05-26] MEDS: ALPRAZolam 0.25 MG TABLET PO PRN (21:31)
[2022-05-27] VITALS: BP_SYST 118
[2022-05-27] MEDS: METHYLPREDNISOLONE SOD SUCC 40 MG/ML VIAL IVP SCH ×5 (00:17→23:51)
[2022-05-27] MEDS: ALBUTEROL MDI INHALATION 8 GM INH INH SCH ×5 (06:07→20:38)
[2022-05-27 07:00] LABS: CALCIUM 7.5 mg/dL (8.4-11.0); CHLORIDE 109 mmol/L (98-107); CREATININE 0.78 mg/dL (0.55-1.30); GLUCOSE 158 mg/dL (70-99); UREA NITROGEN, BLOOD 34 mg/dL (8-21)
[2022-05-27] MEDS: BUDESONIDE 0.5 MG/2 ML AMPUL.NEB INH SCH ×2 (07:00→19:00)
[2022-05-27 07:28] LABS: ANION GAP < 3 (5-15); GFR AFRICAN AMERICAN 128 mL/min (>90)
[2022-05-27 07:46] LABS: BASOPHILS % (AUTO) 0.1 % (0.0-2.0); HEMATOCRIT 23.5 % (36-54); HEMOGLOBIN 7.7 g/dL (14.0-18.0); LYMPHOCYTES # (AUTO) 0.2 K/uL (1.0-5.5); LYMPHOCYTES % (AUTO) 1.5 % (20.5-51.5); MEAN CORPUSCULAR HEMOGLOBIN 30 pg (27-31); MEAN CORPUSCULAR HGB CONC 33 % (32-36); MEAN CORPUSCULAR VOLUME 90 fL (79.0-98.0); MONOCYTES # (AUTO) 0.3 K/uL (0.0-1.0); NEUTROPHILS # (AUTO) 16.1 K/uL (1.8-7.7); NEUTROPHILS % (AUTO) 96.4 % (40.0-70.0); PLATELET COUNT (AUTO) 123 K/uL (130-430); RED CELL DISTRIBUTION WIDTH 14.5 % (9.0-15.0); WHITE BLOOD COUNT (AUTO) 16.6 K/uL (4.8-10.8)
[2022-05-27 08:00] VITALS: BP_SYST 139
[2022-05-27] MEDS: lisinopriL 20 MG TABLET PO SCH (09:02)
[2022-05-27] MEDS: guaiFENesin/DEXTROMETHORPHAN 1 EACH TAB.ER.12H PO SCH ×2 (09:02→20:53)
[2022-05-27] MEDS: CARVEDILOL 12.5 MG TABLET (COREG) PO SCH ×2 (09:02→20:52)
[2022-05-27] MEDS: TAMSULOSIN HCL 0.4 MG CAP PO SCH (09:02)
[2022-05-27] MEDS: MAGNESIUM OXIDE 400 MG TABLET PO SCH ×2 (09:02→20:47)
[2022-05-27] MEDS: PANTOPRAZOLE SODIUM 40 MG/VIAL (PROTONIX) IVP SCH ×2 (09:02→20:47)
[2022-05-27] MEDS: ASCORBIC ACID 500 MG TABLET PO SCH ×2 (09:03→20:47)
[2022-05-27] MEDS: CHOLECALCIFEROL (VITAMIN D3) 5,000 UNIT TABLET PO SCH (09:03)
[2022-05-27] MEDS: ALPRAZolam 0.25 MG TABLET PO PRN ×2 (09:03→20:52)
[2022-05-27 11:45] VITALS: BP_SYST 122
[2022-05-27] MEDS ORDERED: POLYETHYLENE GLYCOL 3350, 17 GM/ POWD.PACK PO ONE (11:45)
[2022-05-27] MEDS ORDERED: MINERAL OIL 30 ML UDC PO ONE (11:45)
[2022-05-27] MEDS ORDERED: DOCUSATE SODIUM 100 MG CAPSULE PO ONE (11:45)
[2022-05-27 14:44] LABS: BASOPHILS % (AUTO) 0.2 % (0.0-2.0); HEMATOCRIT 24.3 % (36-54); HEMOGLOBIN 7.8 g/dL (14.0-18.0); LYMPHOCYTES # (AUTO) 0.2 K/uL (1.0-5.5); LYMPHOCYTES % (AUTO) 1.1 % (20.5-51.5); MEAN CORPUSCULAR HEMOGLOBIN 29 pg (27-31); MEAN CORPUSCULAR HGB CONC 32 % (32-36); MEAN CORPUSCULAR VOLUME 90 fL (79.0-98.0); MONOCYTES # (AUTO) 0.4 K/uL (0.0-1.0); MONOCYTES % (AUTO) 2.5 % (1.7-9.3); NEUTROPHILS # (AUTO) 14.8 K/uL (1.8-7.7); NEUTROPHILS % (AUTO) 96.2 % (40.0-70.0); PLATELET COUNT (AUTO) 109 K/uL (130-430); RED BLOOD CELL COUNT(AUTO) 2.68 MIL/uL (4.2-6.2); RED CELL DISTRIBUTION WIDTH 14.3 % (9.0-15.0); WHITE BLOOD COUNT (AUTO) 15.3 K/uL (4.8-10.8)
[2022-05-27 16:40] VITALS: BP_SYST 127
[2022-05-27] MEDS ORDERED: SULFAMETHOXAZOLE/TRIMETHOPR DS 1 TABLET PO SCH (17:00)
[2022-05-27 19:00] VITALS: BP_SYST 116
[2022-05-27] MEDS: DOCUSATE SODIUM 100 MG CAPSULE PO SCH (20:53)
[2022-05-27] MEDS: cefTRIAXone 1 GM in D5W 50 ML IV SCH (20:54)
[2022-05-27] MEDS: SIMVASTATIN 20 MG TABLET PO SCH (20:55)
[2022-05-28 00:46] VITALS: BP_SYST 101
[2022-05-28 04:00] VITALS: BP_SYST 121
[2022-05-28] MEDS: METHYLPREDNISOLONE SOD SUCC 40 MG/ML VIAL IVP SCH ×2 (06:59→12:18)
[2022-05-28] MEDS: BUDESONIDE 0.5 MG/2 ML AMPUL.NEB INH SCH (07:00)
[2022-05-28] MEDS: ALBUTEROL MDI INHALATION 8 GM INH INH SCH ×3 (07:15→15:11)
[2022-05-28 08:00] VITALS: BP_SYST 135
[2022-05-28] MEDS: PANTOPRAZOLE SODIUM 40 MG/VIAL (PROTONIX) IVP SCH (08:46)
[2022-05-28] MEDS: guaiFENesin/DEXTROMETHORPHAN 1 EACH TAB.ER.12H PO SCH (08:46)
[2022-05-28] MEDS: DOCUSATE SODIUM 100 MG CAPSULE PO SCH (08:46)
[2022-05-28] MEDS: TAMSULOSIN HCL 0.4 MG CAP PO SCH (08:46)
[2022-05-28] MEDS: CARVEDILOL 12.5 MG TABLET (COREG) PO SCH (08:46)
[2022-05-28] MEDS: MAGNESIUM OXIDE 400 MG TABLET PO SCH (08:46)
[2022-05-28] MEDS: ASCORBIC ACID 500 MG TABLET PO SCH (08:46)
[2022-05-28] MEDS: lisinopriL 20 MG TABLET PO SCH (08:47)
[2022-05-28] MEDS: CHOLECALCIFEROL (VITAMIN D3) 5,000 UNIT TABLET PO SCH (08:47)
[2022-05-28] MEDS ORDERED: POLYETHYLENE GLYCOL 3350, 17 GM/ POWD.PACK PO SCH (09:00)
[2022-05-28 11:40] VITALS: BP_SYST 119
[2022-05-28 12:31] LABS: BASOPHILS # (AUTO) 0.1 K/uL (0.0-0.2); BASOPHILS % (AUTO) 0.3 % (0.0-2.0); HEMATOCRIT 25.7 % (36-54); HEMOGLOBIN 8.2 g/dL (14.0-18.0); LYMPHOCYTES # (AUTO) 0.3 K/uL (1.0-5.5); LYMPHOCYTES % (AUTO) 1.6 % (20.5-51.5); MEAN CORPUSCULAR HEMOGLOBIN 29 pg (27-31); MEAN CORPUSCULAR HGB CONC 32 % (32-36); MEAN CORPUSCULAR VOLUME 90 fL (79.0-98.0); MONOCYTES # (AUTO) 1.2 K/uL (0.0-1.0); MONOCYTES % (AUTO) 6.6 % (1.7-9.3); NEUTROPHILS % (AUTO) 91.5 % (40.0-70.0); PLATELET COUNT (AUTO) 116 K/uL (130-430); RED BLOOD CELL COUNT(AUTO) 2.84 MIL/uL (4.2-6.2); RED CELL DISTRIBUTION WIDTH 14.5 % (9.0-15.0); WHITE BLOOD COUNT (AUTO) 18.6 K/uL (4.8-10.8)
[2022-05-28 15:25] VITALS: BP_SYST 128
[2022-05-28 16:40] VITALS: BP_SYST 113
== END 2022-05-28 16:00 | DRG 137 ==
LOC: SED 15:45 → STU 19:05 → SMU 05-27 17:53
PROVIDERS: ADMIT Family Medicine; ATTEND Family Medicine
PROC: XW033E5 Introduction of Remdesivir Anti-infective into Peripheral Vein, Percutaneous Approach, New Technology Group 5 (ICD-10-PCS; 2022-05-18)
PROC: 30233N1 Transfusion of Nonautologous Red Blood Cells into Peripheral Vein, Percutaneous Approach (ICD-10-PCS; 2022-05-23)
PROC: 0DB78ZX Excision of Stomach, Pylorus, Via Natural or Artificial Opening Endoscopic, Diagnostic (ICD-10-PCS; principal; 2022-05-24 12:15)
PROC: 0DBP8ZZ Excision of Rectum, Via Natural or Artificial Opening Endoscopic (ICD-10-PCS; 2022-05-24 12:15)
DX: U07.1 COVID-19 (principal); J96.21 Acute and chronic respiratory failure with hypoxia; J12.82 Pneumonia due to coronavirus disease 2019; K26.4 Chronic or unspecified duodenal ulcer with hemorrhage; R65.10 Systemic inflammatory response syndrome (SIRS) of non-infectious origin without acute organ dysfunction; J44.0 Chronic obstructive pulmonary disease with (acute) lower respiratory infection; D50.0 Iron deficiency anemia secondary to blood loss (chronic); F17.200 Nicotine dependence, unspecified, uncomplicated; E66.9 Obesity, unspecified; K62.1 Rectal polyp; I10 Essential (primary) hypertension; J44.1 Chronic obstructive pulmonary disease with (acute) exacerbation; N40.0 Benign prostatic hyperplasia without lower urinary tract symptoms; K57.30 Diverticulosis of large intestine without perforation or abscess without bleeding; K64.8 Other hemorrhoids; K44.9 Diaphragmatic hernia without obstruction or gangrene; K29.70 Gastritis, unspecified, without bleeding; K63.5 Polyp of colon; Z79.899 Other long term (current) drug therapy
CPT/HCPCS: 36415; 36600; 43239; 45384; 71045; 80048; 80053; 82803-TC; 83605; 83735; 85007; 85025; 85027; 85379; 85610-TC; 85730-TC; 86140; 86886; 86900; 86901; 86920; 87040; 87081; 88305; 88312; 88313; 93005; 93306; 94640; 94664; 94760; 96365; 96367; 96375; 99285; C9113; G0378; J0456; J0696; J1030; J1650; J2175; J2250; J2405; J2930; J7030; J7050; J7060; J7613; J7626; P9021